=== PATIENT | female | born 1995 | race Caucasian/White ===

== ENCOUNTER → 2016-10-23 | Outpatient (REF) | payer OTHER | LOC: M SFHCWAGY 15:42 | PROVIDERS: ATTEND Nurse Practitioner Family | DX: Z11.3 Encounter for screening for infections with a predominantly sexual mode of transmission (principal) ==

== ENCOUNTER 2016-12-16 00:52 | Inpatient (IN) | payer OTHER ==
[~2016-12-16] VITALS: Ht 165.1 cm; Wt 73.4 kg
[2016-12-16] MEDS ORDERED: ALPR1TAB3 (01:05)
[2016-12-16] MEDS ORDERED: IBUP80TA (01:05)
[2016-12-16] MEDS ORDERED: DEXTROAMP-AMPHETAMIN PO (01:05)
[2016-12-16] MEDS ORDERED: AZIT250T3 PO (01:06)
[2016-12-16] MEDS ORDERED: NS 1,000 ML IV ONE (01:45)
[2016-12-16] MEDS ORDERED: ONDANSETRON 4MG/2ML VIAL (J2405) IV ONE (01:45)
[2016-12-16] MEDS ORDERED: MORPHINE 4 MG/ML 1ML SYRINGE IV PRN ×2 (01:45→06:30)
[2016-12-16 03:08] LABS: BASO # 0.1 K/mm3 (0.0-0.2); BASO % 1.1 % (0.0-1.0); EOS # 0.2 K/mm3 (0.0-0.50); EOS % 4.5 % (0.0-3.0); LARGE UNSTAINED CELL # 0.4 K/mm3 (0.0-0.4); LARGE UNSTAINED CELL % 7.2 % (0.0-4.0); LYMPH # 2.5 K/mm3 (1.5-6.5); LYMPH % 40.9 % (24.0-44.0); MEAN CORPUSCULAR HEMOGLOBIN 28.8 pg (27.0-33.0); MEAN CORPUSCULAR HGB CONC 34.8 g/dl (32.0-36.5); MEAN CORPUSCULAR VOLUME 82.7 fl (80.0-96.0); MONO # 0.3 K/mm3 (0.0-0.8); MONO % 5.2 % (0.0-5.0); NEUTROPHILS # 2.2 K/mm3 (1.8-7.7); NEUTROPHILS % 41.1 % (36.0-66.0); PLATELET COUNT, AUTOMATED 174 k/mm3 (150-450); WHITE BLOOD COUNT 5.3 K/mm3 (4.0-10.0)
[2016-12-16 03:22] LABS: CONTROL LINE HCG INT CTR LINE PRESENT
[2016-12-16 03:25] LABS: ALBUMIN 3.4 GM/DL (3.2-5.2); ALBUMIN/GLOBULIN RATIO 0.89 (1.00-1.93); ALKALINE PHOSPHATASE 111 U/L (45-117); ALT/SGPT 45 U/L (12-78); ANION GAP 11 MEQ/L (8-16); AST/SGOT 54 U/L (15-37); BILIRUBIN,DIRECT < 0.1 MG/DL (0.0-0.2); BILIRUBIN,TOTAL 0.6 MG/DL (0.2-1.0); BLOOD UREA NITROGEN 6 MG/DL (7-18); CALCIUM LEVEL 8.1 MG/DL (8.5-10.1); CARBON DIOXIDE LEVEL 24 MEQ/L (21-32); CHLORIDE LEVEL 105 MEQ/L (98-107); CREATININE FOR GFR 0.47 MG/DL (0.55-1.02); GLUCOSE, FASTING 90 MG/DL (70-105); SODIUM LEVEL 140 MEQ/L (136-145); TOTAL PROTEIN 7.2 GM/DL (6.4-8.2)
[2016-12-16] MEDS ORDERED: ISOVUE-370 76% 100ML VIAL (Q9967) As Ordered ONE (04:12)
[2016-12-16] MEDS ORDERED: MORPHINE 4 MG/ML 1ML SYRINGE IV ONE (04:15)
--- NOTE | 2016-12-16 04:50 | REPUSA ---
CLINICAL HISTORY: Abdominal pain. TECHNIQUE: Multiple axial, sagittal and coronal CT images were obtained through the abdomen and pelvi s after administration of intravenous contrast material. COMMENTS: The liver is mildly enlarged without mass or defect. There is no intra or extrahepatic biliary ductal dilatation. The spleen is moderately enlarged. The gallbladder is diffusely thickened. Small pericho lecystic free fluid. The pancreas is of normal contour and attenuation characteristics. There is no e vidence of adrenal mass. Both kidneys demonstrate prompt and equal nephrograms. The kidneys are normal in size, shape and conf iguration. There is no evidence of renal or ureteral mass. No renal or ureteral calculi are identifie d. There is no hydroureter or hydronephrosis. No evidence for appendicitis. There is thickening of the second portion of the duodenum. No evidence for small or large bowel obstruction. There is no evidence of intrinsic or extrinsic bladder mass. There is small amount of free pelvic fluid. Diffusely thickened bladder. 2.5 cm left ovarian cyst. Images of the lung bases show no evidence of pleural or parenchymal mass. Bilateral basilar atelectat ic pulmonary changes. There are no pleural effusions. The bony structures are free of lytic or blastic lesions. IMPRESSION: Thickened gallbladder with pericholecystic free fluid. Mild duodenitis. Fluid-filled proximal colon. Ileus versus developing enteritis/colitis. Mild hepatomegaly. Moderate splenomegaly. Bilateral basilar atelectatic pulmonary changes. Cystitis. Left ovarian cyst. Thank you for your kind referral of this patient.
[2016-12-16] MEDS ORDERED: ACETAMINOPHEN TAB 650MG DOSE (2X325MG) PO ONE (05:45)
--- NOTE | 2016-12-16 06:20 | REPUSA ---
CLINICAL HISTORY: Abdominal pain. TECHNIQUE: Realtime sonographic images were obtained in multiple projections. COMMENTS: Coarse hepatic echotexture. Diffuse edema of the wall of the gallbladder measuring 9.7 mm in its maximum thickness. Nondilated common bile duct measuring 2.9 mm. The right kidney measures 11.9x6.8x4.8 cm. There is no abdominal ascites. The right kidney measures 11.9x6.8x4.8 cm, free of hydronephrosis. Minimal right pleural effusion is noted. CT scan images performed on the same day were reviewed. There is minimal right pleural effusion. IMPRESSION: Thickened gallbladder. Acute inflammatory pathology is suspected. This needs clinical evaluation. Coarse hepatic echotexture. Please correlate with LFTs. Small amount of pericholecystic fluid. Minimal right pleural effusion. Thank you for your kind referral of this patient.
[2016-12-16] MEDS ORDERED: metroNIDAZOLE 500 MG in APPROPRIATE DILUENT 1 EA IV ONE (06:30)
[2016-12-16] MEDS ORDERED: CIPROFLOXACIN 400 MG in APPROPRIATE DILUENT 1 EA IV ONE (06:30)
[2016-12-16] MEDS ORDERED: ALPR1TAB3 PO (08:16)
[2016-12-16] MEDS ORDERED: ADDE5TAB5 PO (08:16)
[2016-12-16] MEDS ORDERED: IBUP200C PO (08:31)
[2016-12-16] MEDS ORDERED: TYLE325T5 PO (08:31)
[2016-12-16 09:05] VITALS: BP 104/69
[2016-12-16] MEDS: PANTOPRAZOLE 40MG INJ (PROTONIX) (C9113) IV SCH (09:28)
[2016-12-16] MEDS: LR 1,000 ML IV SCH ×2 (09:28→13:25)
[2016-12-16] MEDS: SENOKOT S TAB PO SCH ×2 (09:28→21:19)
[2016-12-16] MEDS: KETOROLAC 30 MG/ML VIAL (J1885) IV PRN ×3 (09:29→22:46)
[2016-12-16] MEDS: ONDANSETRON 4MG/2ML VIAL (J2405) IV PRN ×3 (09:29→22:24)
[2016-12-16] MEDS: ALPRAZolam 0.5 MG TAB PO PRN ×2 (12:39→18:51)
[2016-12-16 14:00] VITALS: BP 117/58
[2016-12-16] MEDS: metroNIDAZOLE 500 MG in APPROPRIATE DILUENT 1 EA IV SCH (16:33)
[2016-12-16] MEDS: NORCO, ANEXSIA 5/325MG TABLET (HYDROcodone/ACETAMINOPHEN) PO PRN (17:41)
[2016-12-16] MEDS: CIPROFLOXACIN 400 MG in APPROPRIATE DILUENT 1 EA IV SCH (18:52)
[2016-12-16 22:00] VITALS: BP 110/55
[2016-12-17] MEDS: metroNIDAZOLE 500 MG in APPROPRIATE DILUENT 1 EA IV SCH ×3 (00:29→16:00)
[2016-12-17] MEDS: LR 1,000 ML IV SCH ×4 (00:29→23:46)
[2016-12-17] MEDS: ACETAMINOPHEN TAB 650MG DOSE (2X325MG) PO PRN (05:32)
[2016-12-17 06:00] VITALS: BP 110/52
[2016-12-17 06:37] LABS: MEAN CORPUSCULAR HEMOGLOBIN 28.6 pg (27.0-33.0); MEAN CORPUSCULAR HGB CONC 34.7 g/dl (32.0-36.5); MEAN CORPUSCULAR VOLUME 82.2 fl (80.0-96.0); RED CELL DISTRIBUTION WIDTH 12.8 % (11.5-14.5); WHITE BLOOD COUNT 4.3 K/mm3 (4.0-10.0)
[2016-12-17 06:50] LABS: ALBUMIN 2.8 GM/DL (3.2-5.2); ALBUMIN/GLOBULIN RATIO 0.93 (1.00-1.93); ALKALINE PHOSPHATASE 90 U/L (45-117); ALT/SGPT 43 U/L (12-78); ANION GAP 10 MEQ/L (8-16); AST/SGOT 44 U/L (15-37); BILIRUBIN,TOTAL 0.6 MG/DL (0.2-1.0); BLOOD UREA NITROGEN 7 MG/DL (7-18); CALCIUM LEVEL 8.1 MG/DL (8.5-10.1); CARBON DIOXIDE LEVEL 23 MEQ/L (21-32); CHLORIDE LEVEL 108 MEQ/L (98-107); CREATININE FOR GFR 0.43 MG/DL (0.55-1.02); GLUCOSE, FASTING 87 MG/DL (70-105); POTASSIUM SERUM 3.5 MEQ/L (3.5-5.1); SODIUM LEVEL 141 MEQ/L (136-145); TOTAL PROTEIN 5.8 GM/DL (6.4-8.2)
[2016-12-17] MEDS: CIPROFLOXACIN 400 MG in APPROPRIATE DILUENT 1 EA IV SCH ×2 (06:54→18:28)
[2016-12-17] MEDS: PANTOPRAZOLE 40MG INJ (PROTONIX) (C9113) IV SCH (09:27)
[2016-12-17] MEDS: ONDANSETRON 4MG/2ML VIAL (J2405) IV PRN ×2 (09:28→18:28)
[2016-12-17] MEDS: ALPRAZolam 0.5 MG TAB PO PRN ×2 (09:28→18:38)
[2016-12-17] MEDS: SENOKOT S TAB PO SCH ×2 (09:28→21:00)
[2016-12-17] MEDS: NORCO, ANEXSIA 5/325MG TABLET (HYDROcodone/ACETAMINOPHEN) PO PRN ×2 (09:29→15:05)
[2016-12-17 14:00] VITALS: BP 135/65
[2016-12-17] MEDS: METOCLOPRAMIDE INJ 10MG/2ML VIAL (J2765) IV PRN ×2 (15:03→21:55)
[2016-12-17] MEDS: KETOROLAC 30 MG/ML VIAL (J1885) IV PRN (21:56)
[2016-12-17 22:00] VITALS: BP 129/70
[2016-12-18] VITALS (7 sets, daily range): BP systolic 115–136; BP diastolic 57–76
[2016-12-18] MEDS: METOCLOPRAMIDE INJ 10MG/2ML VIAL (J2765) IV PRN ×2 (00:30→08:51)
[2016-12-18] MEDS: KETOROLAC 30 MG/ML VIAL (J1885) IV PRN ×2 (00:30→06:24)
[2016-12-18] MEDS: metroNIDAZOLE 500 MG in APPROPRIATE DILUENT 1 EA IV SCH ×4 (00:30→23:46)
[2016-12-18] MEDS: ONDANSETRON 4MG/2ML VIAL (J2405) IV PRN (06:24)
[2016-12-18] MEDS: CIPROFLOXACIN 400 MG in APPROPRIATE DILUENT 1 EA IV SCH ×2 (06:25→19:00)
[2016-12-18] MEDS: LR 1,000 ML IV SCH ×3 (07:46→23:32)
[2016-12-18] MEDS: PANTOPRAZOLE 40MG INJ (PROTONIX) (C9113) IV SCH (08:51)
[2016-12-18] MEDS: SENOKOT S TAB PO SCH ×2 (09:00→20:39)
[2016-12-18] MEDS ORDERED: INFLUENZA QUADRIVALENT PF VACCINE 0.5ML SYRINGE/VIAL (90686) IM ONE (09:00)
[2016-12-18] MEDS ORDERED: MIDAZOLAM INJ 2 MG/2 ML VIAL (J2250) As Ordered ONE (09:56)
[2016-12-18] MEDS ORDERED: PROPOFOL 200 MG/20 ML VIAL As Ordered ONE (09:57)
[2016-12-18] MEDS ORDERED: fentaNYL 250 MCG/5 ML INJECTION (J3010) As Ordered ONE (09:57)
[2016-12-18] MEDS ORDERED: ROCURONIUM BROMIDE 50 MG/5 ML VIAL As Ordered ONE ×2 (09:59→11:36)
[2016-12-18] MEDS ORDERED: BUPIVACAINE HCL 0.25% 30 ML VIAL As Ordered ONE (10:00)
[2016-12-18] MEDS ORDERED: LIDOCAINE 1% SDV INJ 30 ML VIAL As Ordered ONE (10:00)
[2016-12-18] MEDS ORDERED: CONRAY-60 60% 50ML VIAL (Q9961) As Ordered ONE (10:00)
[2016-12-18 10:34] LABS: CONTROL LINE UCG INT CTR LINE PRESENT
[2016-12-18] MEDS ORDERED: METOCLOPRAMIDE INJ 10MG/2ML VIAL (J2765) As Ordered ONE (10:37)
[2016-12-18] MEDS ORDERED: ONDANSETRON 4MG/2ML VIAL (J2405) As Ordered ONE (10:43)
[2016-12-18] MEDS ORDERED: HYDROmorphone HCL 2 MG/ML 1ML VIAL (J1170) As Ordered ONE (11:16)
[2016-12-18] MEDS ORDERED: dexameTHASONE 4 MG/ML 1ML VIAL (J1100) As Ordered ONE (11:19)
[2016-12-18] MEDS ORDERED: SUGAMMADEX SODIUM 500 MG/5 ML VIAL (BRIDION) As Ordered ONE (12:10)
[2016-12-18] MEDS ORDERED: fentaNYL 100 MCG/2 ML INJECTION (J3010) IV PRN (13:00)
[2016-12-18] MEDS ORDERED: ONDANSETRON 4MG/2ML VIAL (J2405) IV PRN (13:00)
[2016-12-18] MEDS ORDERED: LR 1,000 ML IV SCH (13:00)
[2016-12-18] MEDS ORDERED: METOCLOPRAMIDE INJ 10MG/2ML VIAL (J2765) IV PRN (13:00)
[2016-12-18] MEDS ORDERED: MEPERIDINE INJ 25 MG/ML VIAL (J2175) IV PRN (13:00)
[2016-12-18] MEDS ORDERED: PERCOCET 5MG/325MG TAB As Ordered ONE ×2 (13:09→13:52)
[2016-12-18] MEDS: PERCOCET 5MG/325MG TAB PO PRN ×2 (13:13→13:56)
[2016-12-18] MEDS: MORPHINE 4 MG/ML 1ML SYRINGE IV PRN ×2 (17:01→22:45)
[2016-12-18] MEDS: ALPRAZolam 0.5 MG TAB PO PRN (17:49)
[2016-12-18] MEDS: NORCO, ANEXSIA 5/325MG TABLET (HYDROcodone/ACETAMINOPHEN) PO PRN (18:54)
[2016-12-19] MEDS: ALPRAZolam 0.5 MG TAB PO PRN ×2 (00:55→15:37)
[2016-12-19] MEDS: KETOROLAC 30 MG/ML VIAL (J1885) IV PRN (00:55)
[2016-12-19] MEDS: METOCLOPRAMIDE INJ 10MG/2ML VIAL (J2765) IV PRN (00:58)
[2016-12-19 02:00] VITALS: BP 126/66
[2016-12-19] MEDS: NORCO, ANEXSIA 5/325MG TABLET (HYDROcodone/ACETAMINOPHEN) PO PRN ×3 (05:59→20:24)
[2016-12-19] MEDS: CIPROFLOXACIN 400 MG in APPROPRIATE DILUENT 1 EA IV SCH (05:59)
[2016-12-19 06:00] VITALS: BP 108/56
[2016-12-19] MEDS ORDERED: metroNIDAZOLE (FLAGYL) 500 MG TAB PO SCH (06:00)
[2016-12-19] MEDS ORDERED: CIPROFLOXACIN 500 MG TAB PO SCH (06:00)
[2016-12-19 07:26] LABS: BASO # 0.1 K/mm3 (0.0-0.2); BASO % 1.2 % (0.0-1.0); EOS # 0.2 K/mm3 (0.0-0.50); EOS % 3.3 % (0.0-3.0); LARGE UNSTAINED CELL # 0.3 K/mm3 (0.0-0.4); LARGE UNSTAINED CELL % 5.9 % (0.0-4.0); MEAN CORPUSCULAR HEMOGLOBIN 28.7 pg (27.0-33.0); MEAN CORPUSCULAR HGB CONC 35.2 g/dl (32.0-36.5); MEAN CORPUSCULAR VOLUME 81.4 fl (80.0-96.0); MONO # 0.4 K/mm3 (0.0-0.8); MONO % 7.6 % (0.0-5.0); NEUTROPHILS # 2.3 K/mm3 (1.8-7.7); PLATELET COUNT, AUTOMATED 170 k/mm3 (150-450); RED CELL DISTRIBUTION WIDTH 13.2 % (11.5-14.5); WHITE BLOOD COUNT 4.9 K/mm3 (4.0-10.0)
[2016-12-19 07:50] LABS: ALBUMIN 2.7 GM/DL (3.2-5.2); ALBUMIN/GLOBULIN RATIO 0.93 (1.00-1.93); ALKALINE PHOSPHATASE 164 U/L (45-117); ALT/SGPT 138 U/L (12-78); ANION GAP 9 MEQ/L (8-16); AST/SGOT 281 U/L (15-37); BILIRUBIN,TOTAL 0.6 MG/DL (0.2-1.0); BLOOD UREA NITROGEN 6 MG/DL (7-18); CARBON DIOXIDE LEVEL 25 MEQ/L (21-32); CHLORIDE LEVEL 108 MEQ/L (98-107); CREATININE FOR GFR 0.47 MG/DL (0.55-1.02); GLUCOSE, FASTING 106 MG/DL (70-105); POTASSIUM SERUM 3.4 MEQ/L (3.5-5.1); SODIUM LEVEL 142 MEQ/L (136-145); TOTAL PROTEIN 5.6 GM/DL (6.4-8.2)
[2016-12-19] MEDS: SENOKOT S TAB PO SCH ×2 (08:50→20:21)
[2016-12-19] MEDS: PANTOPRAZOLE 40MG INJ (PROTONIX) (C9113) IV SCH (08:50)
--- NOTE | 2016-12-19 09:25 | RO ---
DATE OF PROCEDURE: 12/18/2016 PREOPERATIVE DIAGNOSIS: Acute cholecystitis. POSTOPERATIVE DIAGNOSIS: Acute cholecystitis. PROCEDURE: Laparoscopic cholecystectomy. SURGEON: Dr. Dipak Maher. SALES LEDGER ADMINISTRATOR: ANESTHESIA: General anesthesia. ESTIMATED BLOOD LOSS: Less than 25 mL. COMPLICATIONS: None. FINDINGS: Distended and acutely inflamed gallbladder though no obvious stones found. PROCEDURE NOTE: Ms. Wheat is admitted for acute cholecystitis and has failed medical management with antibiotics and bowel rest. She continues to have discomfort and nausea and vomiting as well as febrile episodes. She is brought today for cholecystectomy. The patient has been receiving ciprofloxacin, metronidazole during this admission. This was this was continued perioperatively. She was brought to the operating room, placed spine on table. General endotracheal anesthesia started. Compression boots placed on her lower extremities for deep venous thrombosis (DVT) prophylaxis. Her abdomen then prepped and draped in usual sterile fashion. After surgical time-out, we began our surgery. Entry to the abdomen done through an incision just above her umbilicus. Veress needle inserted in a controlled fashion. CO2 insufflation started to a pressure of 15 mmHg. Using the same incision, a 5 mm Visiport was placed under direct vision of laparoscope. The insertion site was inspected for injury and none was found. She was placed on a reverse Trendelenburg position. Her right side tilted roughly about 40 degrees to further expose the gallbladder. Under direct vision, an 11 mm epigastric port and two 5 mm ports along the subcostal line on the right side were placed. On diagnostic laparoscopy, the gallbladder was found to be moderately distended, mildly thickened wall but had edema around her gallbladder wall consistent with acute cholecystitis. Palpating the gallbladder did not reveal any obvious stones. The fundus of the gallbladder was grasped and elevated superiorly. Due to location of the gallbladder being further into the underside of the liver and the distension of the gallbladder, the gallbladder could not be lifted up as much as we want to fully expose the infundibulum. The peritoneum on the anterior and posterior side of the gallbladder was then opened up to help us manipulate the gallbladder. The hepatocystic triangle was dissected using [place] instrument. The cystic duct is fairly distended but still no stones were found. The cystic artery was located medial to this which is small in size. During our manipulation with a lateral retraction of the neck of the gallbladder, there was puncture of the gallbladder wall at this area with drainage of black bilious content. After controlling this, we continued dissection posteriorly at the neck of the gallbladder until we meet the critical view of safety whereby the duct and artery were the only two structures coursing through the neck of the gallbladder. To also help us elevate the gallbladder more, we did the fundus dissection dissecting the posterior wall of the fundus off the gallbladder bed up to the midbody. After this, the cystic artery was clipped four times and divided. Due to the fairly large size of the cystic duct, the 10 mm clip is not enough to fully occlude the stump, thus I continued the antegrade dissection of the gallbladder to fully dissect the gallbladder off the liver bed. I then used a #0 Vicryl Endoloop and threaded this through the whole of the gallbladder until we reached the area beyond where the perforation of the gallbladder neck was found and used this to control the cystic duct. This is cinched just at the start of the cystic duct. Another hemoclip was placed to secure the stump. The duct was then divided. This was then placed in EndoCatch bag and retrieved through the epigastric port site. On re-insufflation, there was a small bleeding on the lateral side of the gallbladder bed midway and this was controlled with Bovie cautery. Thorough irrigation was then performed and all visible irrigant suctioned off until we have a clear return. We surveyed the abdomen once and looked at the stump. No bleeding or bile leakage was noted. We again tried to suction of any remaining irrigant that we placed. The abdomen was then deflated. All ports removed. The epigastric fascial defect with an 11 mm trocar was then closed with #0 Vicryl in mattress fashion. All skin incisions closed with #4-0 Monocryl in subcuticular fashion. Gauze dressings and Tegaderm used for wound coverage. The patient was then awakened, extubated and brought to recovery room stable.
[2016-12-19 10:00] VITALS: BP 129/75
[2016-12-19] MEDS: ONDANSETRON 4 MG ORAL DISINTEGRATING TAB (S0181) SL SCH ×3 (12:38→23:43)
[2016-12-19 14:00] VITALS: BP 113/67
[2016-12-19 22:00] VITALS: BP 133/83
[2016-12-20] MEDS: ALPRAZolam 0.5 MG TAB PO PRN ×2 (02:06→21:11)
[2016-12-20] MEDS: NORCO, ANEXSIA 5/325MG TABLET (HYDROcodone/ACETAMINOPHEN) PO PRN ×3 (03:08→18:00)
[2016-12-20] MEDS: ONDANSETRON 4 MG ORAL DISINTEGRATING TAB (S0181) SL SCH (05:32)
[2016-12-20 06:00] VITALS: BP 118/64
[2016-12-20 09:13] LABS: ALBUMIN 2.6 GM/DL (3.2-5.2); ALBUMIN/GLOBULIN RATIO 0.87 (1.00-1.93); ALKALINE PHOSPHATASE 166 U/L (45-117); ALT/SGPT 216 U/L (12-78); ANION GAP 7 MEQ/L (8-16); AST/SGOT 335 U/L (15-37); BILIRUBIN,TOTAL 0.5 MG/DL (0.2-1.0); BLOOD UREA NITROGEN 6 MG/DL (7-18); CALCIUM LEVEL 7.8 MG/DL (8.5-10.1); CARBON DIOXIDE LEVEL 26 MEQ/L (21-32); CHLORIDE LEVEL 107 MEQ/L (98-107); CREATININE FOR GFR 0.39 MG/DL (0.55-1.02); GLUCOSE, FASTING 94 MG/DL (70-105); POTASSIUM SERUM 3.1 MEQ/L (3.5-5.1); SODIUM LEVEL 140 MEQ/L (136-145); TOTAL PROTEIN 5.6 GM/DL (6.4-8.2)
[2016-12-20] MEDS: SENOKOT S TAB PO SCH ×2 (10:08→21:11)
[2016-12-20] MEDS ORDERED: ONDANSETRON 4MG/2ML VIAL (J2405) IV SCH (12:00)
[2016-12-20 14:00] VITALS: BP 134/72
--- NOTE | 2016-12-20 14:32 | REP ---
Radionuclide biliary scan: Imaging is performed after intravenous infusion of these a 99 labeled that profound then, 6.6 mCi. Comparison is a gallbladder ultrasound of 12/16/2016 that demonstrated gallbladder wall thickening. Portion the patient reportedly had a cholecystectomy 2 days ago and has post op nausea, vomiting and abdominal pain. There is biliary to bowel transit at 10-50 minutes post fusion. There is normal hepatic washout. There is no extravasation of radiotracer. Impression: No evidence of biliary obstruction. No extraluminal extravasation of radiotracer. Signed by Shailesh Sargent MD 12/20/2016 02:24 P
[2016-12-20] MEDS ORDERED: METOCLOPRAMIDE INJ 10MG/2ML VIAL (J2765) IV SCH (15:00)
[2016-12-20] MEDS ORDERED: ONDANSETRON 4 MG ORAL DISINTEGRATING TAB (S0181) PO PRN (15:15)
[2016-12-20] MEDS: ONDANSETRON 4 MG ORAL DISINTEGRATING TAB (S0181) PO SCH ×2 (15:36→21:11)
[2016-12-20] MEDS ORDERED: ONDANSETRON 4 MG ORAL DISINTEGRATING TAB (S0181) PO SCH (18:00)
[2016-12-20] MEDS: METOCLOPRAMIDE 10 MG TAB PO SCH (21:00)
[2016-12-20 22:00] VITALS: BP 122/70
[2016-12-20] MEDS: ACETAMINOPHEN TAB 650MG DOSE (2X325MG) PO PRN (22:51)
[2016-12-21] MEDS: NORCO, ANEXSIA 5/325MG TABLET (HYDROcodone/ACETAMINOPHEN) PO PRN ×2 (03:05→10:43)
[2016-12-21] MEDS: ONDANSETRON 4 MG ORAL DISINTEGRATING TAB (S0181) PO SCH ×2 (03:05→09:14)
[2016-12-21 06:00] VITALS: BP 118/56
[2016-12-21 06:58] LABS: BASO # 0.1 K/mm3 (0.0-0.2); BASO % 1.3 % (0.0-1.0); EOS # 0.2 K/mm3 (0.0-0.50); EOS % 3.8 % (0.0-3.0); LARGE UNSTAINED CELL # 0.4 K/mm3 (0.0-0.4); LARGE UNSTAINED CELL % 7.4 % (0.0-4.0); LYMPH # 2.3 K/mm3 (1.5-6.5); LYMPH % 40.7 % (24.0-44.0); MEAN CORPUSCULAR HEMOGLOBIN 27.8 pg (27.0-33.0); MEAN CORPUSCULAR HGB CONC 34.5 g/dl (32.0-36.5); MEAN CORPUSCULAR VOLUME 80.7 fl (80.0-96.0); MONO # 0.3 K/mm3 (0.0-0.8); MONO % 6.5 % (0.0-5.0); NEUTROPHILS % 40.3 % (36.0-66.0); PLATELET COUNT, AUTOMATED 200 k/mm3 (150-450); RED CELL DISTRIBUTION WIDTH 13.6 % (11.5-14.5); WHITE BLOOD COUNT 4.8 K/mm3 (4.0-10.0)
[2016-12-21 07:16] LABS: ALBUMIN 2.6 GM/DL (3.2-5.2); ALBUMIN/GLOBULIN RATIO 0.79 (1.00-1.93); ALKALINE PHOSPHATASE 171 U/L (45-117); ALT/SGPT 210 U/L (12-78); ANION GAP 6 MEQ/L (8-16); AST/SGOT 252 U/L (15-37); BILIRUBIN,TOTAL 0.5 MG/DL (0.2-1.0); BLOOD UREA NITROGEN 5 MG/DL (7-18); CALCIUM LEVEL 7.8 MG/DL (8.5-10.1); CARBON DIOXIDE LEVEL 27 MEQ/L (21-32); CHLORIDE LEVEL 106 MEQ/L (98-107); CREATININE FOR GFR 0.39 MG/DL (0.55-1.02); GLUCOSE, FASTING 103 MG/DL (70-105); POTASSIUM SERUM 3.1 MEQ/L (3.5-5.1); SODIUM LEVEL 139 MEQ/L (136-145); TOTAL PROTEIN 5.9 GM/DL (6.4-8.2)
[2016-12-21] MEDS: METOCLOPRAMIDE 10 MG TAB PO SCH (08:41)
[2016-12-21] MEDS ORDERED: POTASSIUM CHLORIDE 10 MEQ SR TABLET PO SCH (09:00)
[2016-12-21] MEDS: SENOKOT S TAB PO SCH (09:14)
[2016-12-21] MEDS ORDERED: ONDA4TAB6 PO (12:41)
[2016-12-21] MEDS ORDERED: NORCOTAB PO (12:41)
[2016-12-21] MEDS ORDERED: cmp (12:43)
== END 2016-12-21 14:50 | disposition home or self-care (01) | DRG 263 ==
LOC: M ED 01:35 → M ED INP 07:46 → M MS5PR 08:35
PROVIDERS: ADMIT Surgery; ATTEND Surgery
PROC: 0FT44ZZ Resection of Gallbladder, Percutaneous Endoscopic Approach (ICD-10-PCS; principal; 2016-12-18 09:09)
DX: K81.0 Acute cholecystitis (principal)

== ENCOUNTER → 2016-12-26 | Outpatient (CLI) | payer OTHER ==
[~2016-12-26] MED LIST: ADDE5TAB5 PO; ALPR1TAB3; ALPR1TAB3 PO; AZIT250T3 PO; DEXTROAMP-AMPHETAMIN PO; IBUP200C PO; IBUP80TA; NORCOTAB PO; ONDA4TAB6 PO; OXYC1TAB23 PO; TYLE325T5 PO; cmp
[2016-12-26 13:55] LABS: ALBUMIN 2.8 GM/DL (3.2-5.2); ALBUMIN/GLOBULIN RATIO 0.74 (1.00-1.93); ALKALINE PHOSPHATASE 128 U/L (45-117); ALT/SGPT 87 U/L (12-78); ANION GAP 6 MEQ/L (8-16); AST/SGOT 73 U/L (15-37); BILIRUBIN,TOTAL 0.5 MG/DL (0.2-1.0); BLOOD UREA NITROGEN 6 MG/DL (7-18); CALCIUM LEVEL 8.5 MG/DL (8.5-10.1); CARBON DIOXIDE LEVEL 29 MEQ/L (21-32); CHLORIDE LEVEL 103 MEQ/L (98-107); CREATININE FOR GFR 0.49 MG/DL (0.55-1.02); GLUCOSE, FASTING 97 MG/DL (70-105); POTASSIUM SERUM 4.5 MEQ/L (3.5-5.1); SODIUM LEVEL 138 MEQ/L (136-145); TOTAL PROTEIN 6.6 GM/DL (6.4-8.2)
== END ==
LOC: M LAB 12:58
PROVIDERS: ATTEND Surgery
DX: K80.12 Calculus of gallbladder with acute and chronic cholecystitis without obstruction (principal)

== ENCOUNTER 2016-12-30 03:58 | Emergency (ER) | payer OTHER ==
[~2016-12-30] VITALS: Ht 165.1 cm; Wt 76.2 kg
[~2016-12-30 03:58] MED LIST changes: -OXYC1TAB23 PO
[2016-12-30] MEDS ORDERED: OXYC1TAB23 PO (04:28)
[2016-12-30 06:09] VITALS: BP 129/72
== END 2016-12-30 06:42 | disposition left against medical advice (07) ==
LOC: M ED 04:58
DX: R07.0 Pain in throat (principal); Z53.21 Procedure and treatment not carried out due to patient leaving prior to being seen by health care provider

== ENCOUNTER → 2017-02-01 | Outpatient (REF) | payer OTHER ==
[~2017-02-01] MED LIST changes: +OXYC1TAB23 PO
== END ==
LOC: M SFHCWAGY 14:45
PROVIDERS: ATTEND Nurse Practitioner Women's Health
DX: Z11.3 Encounter for screening for infections with a predominantly sexual mode of transmission (principal); R10.2 Pelvic and perineal pain; Z86.19 Personal history of other infectious and parasitic diseases

== ENCOUNTER 2017-05-23 15:14 | Emergency (ER) | payer OTHER, SELFPAY ==
[~2017-05-23] VITALS: Ht 165.1 cm; Wt 73.0 kg
[~2017-05-23 15:14] MED LIST changes: +ADDE1TAB14 PO; -ADDE5TAB5 PO; +AZIT-12 PO; -AZIT250T3 PO; -IBUP200C PO; +IBUP200C10 PO
[2017-05-23] MEDS ORDERED: DAYLIQ3 PO (15:28)
[2017-05-23 17:16] VITALS: BP 113/77
--- NOTE | 2017-05-23 21:41 | ECGEPIP ---
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
== END 2017-05-23 17:17 | disposition home or self-care (01) ==
LOC: M ED 15:14
DX: F41.9 Anxiety disorder, unspecified (principal); M94.0 Chondrocostal junction syndrome [Tietze]; D64.9 Anemia, unspecified; F32.9 Major depressive disorder, single episode, unspecified; F90.0 Attention-deficit hyperactivity disorder, predominantly inattentive type; Z87.09 Personal history of other diseases of the respiratory system; Z88.0 Allergy status to penicillin; Z88.8 Allergy status to other drugs, medicaments and biological substances

== ENCOUNTER 2017-07-01 21:08 | Emergency (ER) | payer SELFPAY ==
[~2017-07-01] VITALS: Ht 165.1 cm; Wt 73.6 kg
[~2017-07-01 21:08] MED LIST changes: +DAYLIQ3 PO
[2017-07-01] MEDS ORDERED: iron PO (21:21)
[2017-07-01] MEDS ORDERED: ranitidine PO (21:21)
[2017-07-01] MEDS ORDERED: prenatal PO (21:21)
[2017-07-01] MEDS ORDERED: KETOROLAC 30 MG/ML VIAL (J1885) IV ONE (22:30)
[2017-07-01 23:15] LABS: BASO % 0.5 % (0.0-1.0); EOS % 0.2 % (0.0-3.0); IMMATURE GRANULOCYTE % 0.3 % (0-0); LYMPH # 1.6 10^3/uL (1.5-6.5); LYMPH % 24.6 % (24.0-44.0); MEAN CORPUSCULAR HEMOGLOBIN 30.1 pg (27.0-33.0); MEAN CORPUSCULAR HGB CONC 35.5 g/dl (32.0-36.5); MEAN CORPUSCULAR VOLUME 84.8 fl (80.0-96.0); MONO # 0.6 10^3/uL (0.0-0.8); MONO % 8.9 % (0.0-5.0); NEUTROPHILS # 4.2 10^3/uL (1.8-7.7); NEUTROPHILS % 65.5 % (36.0-66.0); PLATELET COUNT, AUTOMATED 335 10^3/uL (150-450); RED CELL DISTRIBUTION WIDTH 12.5 % (11.5-14.5); WHITE BLOOD COUNT 6.4 10^3/uL (4.0-10.0)
[2017-07-01 23:42] LABS: ABG BASE EXCESS -2.3 (-2.0-2.0); ABG PARTIAL PRESSURE CO2 27.1 mmHg (35.0-45.0); ABG PARTIAL PRESSURE O2 149.2 mmHg (75.0-100.0); ABG STANDARD HCO3 22.6 MEQ/L (22.0-26.0); ABG TOTAL CO2 20.9 MEQ/L (22.0-29.0); ABG pH (ARTERIAL) 7.487 UNITS (7.350-7.450)
[2017-07-01 23:45] LABS: ANION GAP 5 MEQ/L (8-16); BLOOD UREA NITROGEN 2 MG/DL (7-18); CALCIUM LEVEL 9.3 MG/DL (8.5-10.1); CARBON DIOXIDE LEVEL 28 MEQ/L (21-32); CHLORIDE LEVEL 108 MEQ/L (98-107); CREATININE FOR GFR 0.41 MG/DL (0.55-1.02); GLOMERULAR FILTRATION RATE > 60.0 (>60); GLUCOSE, FASTING 98 MG/DL (70-105); POTASSIUM SERUM 3.5 MEQ/L (3.5-5.1); SODIUM LEVEL 141 MEQ/L (136-145); T UPTAKE 31 % (30-39); THYROXINE (T4) 11.5 UG/DL (4.5-12.0)
[2017-07-02 00:14] VITALS: BP 119/72
--- NOTE | 2017-07-02 02:13 | REP ---
Clinical: Chest pain . Comparison: 09/05/2015 . Technique: PA and lateral. Findings: The mediastinum and cardiac silhouette are normal. The lung dawson are clear and without acute consolidation, effusion, or pneumothorax. The skeletal structures are intact and normal. Impression: 1. No acute cardiopulmonary process. Signed by Ronny Deng MD 07/02/2017 02:04 A
--- NOTE | 2017-07-02 09:38 | ECGEPIP ---
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
== END 2017-07-02 00:16 | disposition home or self-care (01) ==
LOC: M ED 21:08
DX: R07.1 Chest pain on breathing (principal); R06.4 Hyperventilation; F41.9 Anxiety disorder, unspecified; D50.9 Iron deficiency anemia, unspecified; Z79.899 Other long term (current) drug therapy; Z88.0 Allergy status to penicillin; Z88.8 Allergy status to other drugs, medicaments and biological substances; Z88.1 Allergy status to other antibiotic agents
CPT/HCPCS: 71020; 80048; 82803; 84436; 84443; 84479; 85025; 93005; 96374; 99283; J1885

== ENCOUNTER → 2017-10-03 | Outpatient (REF) | payer MEDICAID, OTHER | LOC: M LAB REF 14:09 | DX: R05 Cough (principal); R50.9 Fever, unspecified ==

== ENCOUNTER → 2017-10-26 | Outpatient (CLI) | payer OTHER ==
[2017-10-26 15:21] LABS: BASO % 0.4 % (0.0-1.0); EOS # 0.1 10^3/uL (0.0-0.50); EOS % 1.4 % (0.0-3.0); HEMATOCRIT 34.5 % (36.0-47.0); IMMATURE GRANULOCYTE % 0.1 % (0-3.0); LYMPH # 2.1 10^3/uL (1.5-6.5); LYMPH % 28.5 % (24.0-44.0); MEAN CORPUSCULAR HEMOGLOBIN 29.1 pg (27.0-33.0); MEAN CORPUSCULAR HGB CONC 34.8 g/dl (32.0-36.5); MEAN CORPUSCULAR VOLUME 83.7 fl (80.0-96.0); MONO # 0.8 10^3/uL (0.0-0.8); MONO % 10.9 % (0.0-5.0); NEUTROPHILS # 4.3 10^3/uL (1.8-7.7); NEUTROPHILS % 58.7 % (36.0-66.0); PLATELET COUNT, AUTOMATED 308 10^3/uL (150-450); RED BLOOD COUNT 4.12 10^6/uL (4.00-5.40); RED CELL DISTRIBUTION WIDTH 12.3 % (11.5-14.5); WHITE BLOOD COUNT 7.4 10^3/uL (4.0-10.0)
[2017-10-26 16:42] LABS: CHLAMYDIA DNA AMPLIFICATION NEGATIVE (NEGATIVE); GC DNA AMPLIFICATION NEGATIVE (NEGATIVE)
[2017-10-29 10:34] LABS: RUBELLA IgG QUALITATIVE IMMUNE (IMMUNE)
[2017-10-29 10:40] LABS: HBsAg Prenatal NEGATIVE (NEGATIVE)
[2017-10-29 11:04] LABS: HIV 1&2 SCREEN CENTAUR NEGATIVE (NEGATIVE)
== END ==
LOC: M LAB 14:28
DX: Z34.81 Encounter for supervision of other normal pregnancy, first trimester (principal); Z3A.08 8 weeks gestation of pregnancy
CPT/HCPCS: 86762

== ENCOUNTER → 2017-11-23 | Outpatient (REF) | payer OTHER | LOC: M LAB REF 12:54 | DX: Z34.82 Encounter for supervision of other normal pregnancy, second trimester (principal) ==

== ENCOUNTER → 2017-12-20 | Outpatient (REF) | payer OTHER | LOC: M LAB REF 17:02 | DX: Z34.82 Encounter for supervision of other normal pregnancy, second trimester (principal) ==

== ENCOUNTER → 2018-01-07 | Outpatient (CLI) | payer OTHER | LOC: M RAD 14:31 | DX: Z34.82 Encounter for supervision of other normal pregnancy, second trimester (principal); Z3A.19 19 weeks gestation of pregnancy | CPT/HCPCS: 76811 ==

== ENCOUNTER 2018-03-13 15:33 | Emergency (ER) | payer OTHER | END 2018-03-13 17:22 | disposition home or self-care (01) | LOC: M ED 15:33 | DX: O9A.213 Injury, poisoning and certain other consequences of external causes complicating pregnancy, third trimester (principal); S39.012A Strain of muscle, fascia and tendon of lower back, initial encounter; X50.9XXA Other and unspecified overexertion or strenuous movements or postures, initial encounter; Y92.89 Other specified places as the place of occurrence of the external cause; Z3A.28 28 weeks gestation of pregnancy; Z88.8 Allergy status to other drugs, medicaments and biological substances; Z88.0 Allergy status to penicillin; Z79.2 Long term (current) use of antibiotics | CPT/HCPCS: 99283 ==

== ENCOUNTER → 2018-04-08 | Outpatient (CLI) | payer OTHER | LOC: M RAD 17:32 | DX: Z34.83 Encounter for supervision of other normal pregnancy, third trimester (principal); Z36.89 Encounter for other specified antenatal screening; Z3A.32 32 weeks gestation of pregnancy | CPT/HCPCS: 76816 ==

== ENCOUNTER → 2018-05-02 | Outpatient (REF) | payer OTHER | LOC: M LAB REF 17:14 | DX: Z36.89 Encounter for other specified antenatal screening (principal); Z3A.00 Weeks of gestation of pregnancy not specified | CPT/HCPCS: 87081 ==

== ENCOUNTER 2018-05-06 09:22 | Outpatient (CLI) | payer OTHER | END 2018-05-06 11:40 | disposition home or self-care (01) | LOC: M LDO 09:22 | DX: O36.8130 Decreased fetal movements, third trimester, not applicable or unspecified (principal); Z3A.36 36 weeks gestation of pregnancy; O26.893 Other specified pregnancy related conditions, third trimester ==

== ENCOUNTER → 2018-05-08 | Outpatient (CLI) | payer OTHER | LOC: M RAD 16:31 | DX: O26.843 Uterine size-date discrepancy, third trimester (principal); Z3A.36 36 weeks gestation of pregnancy | CPT/HCPCS: 76816 ==

== ENCOUNTER → 2018-05-16 | Outpatient (REF) | payer OTHER | LOC: M LAB REF 17:18 | DX: Z34.83 Encounter for supervision of other normal pregnancy, third trimester (principal); Z36.89 Encounter for other specified antenatal screening | CPT/HCPCS: 82570 ==

== ENCOUNTER 2018-06-08 07:35 | Inpatient (IN) | payer OTHER ==
[2018-06-08 08:37] LABS: HEMOGLOBIN 10.1 g/dl (12.0-15.5); MEAN CORPUSCULAR HEMOGLOBIN 27.2 pg (27.0-33.0); MEAN CORPUSCULAR HGB CONC 33.7 g/dl (32.0-36.5); MEAN CORPUSCULAR VOLUME 80.9 fl (80.0-96.0); PLATELET COUNT, AUTOMATED 239 10^3/uL (150-450); RED BLOOD COUNT 3.71 10^6/uL (4.00-5.40)
[2018-06-08] MEDS: miSOPROStol 50 MCG 1/2 TAB (S0191) SL ×2 (08:59→14:43)
[2018-06-08] MEDS: ACETAMINOPHEN 500 MG TAB PO (19:51)
[2018-06-08] MEDS: LACTATED RINGER'S 1000 ML IV (20:07)
[2018-06-08] MEDS: OXYTOCIN DRIP 30 UNITS in APPROPRIATE DILUENT 1 EA IV (20:44)
[2018-06-08] MEDS ORDERED: PROMETHAZINE INJ 25 MG/ML VIAL (J2550) IV (21:00)
[2018-06-08] MEDS: BUTORPHANOL 2 MG/ML INJ (J0595) IV (22:09)
[2018-06-09] MEDS ORDERED: FENTANYL 2MCG/ML ROPIVACAINE 0.2% IN 0.9% NACL 200ML IVBAG As Ordered (00:03)
[2018-06-09] MEDS ORDERED: LACTATED RINGER'S 1000 ML IV (00:30)
[2018-06-09] MEDS ORDERED: NALOXONE INJ 0.4 MG/1 ML VIAL (J2310) IV (00:30)
[2018-06-09] MEDS ORDERED: EPIDURAL/PCA KEYS XX (00:30)
[2018-06-09] MEDS ORDERED: ePHEDrine SULFATE 25 MG/5 ML(5MG/ML) SYRINGE IV (00:30)
[2018-06-09] MEDS ORDERED: diphenhydrAMINE INJ 50MG/ML VIAL (J1200) IV (00:30)
[2018-06-09] MEDS ORDERED: EPIDURAL COMMENT XX (00:30)
[2018-06-09] MEDS ORDERED: FENTANYL/ROPIVACAINE/NACL BAG 200 ML EPIDURAL (00:30)
[2018-06-09] MEDS ORDERED: REFRIGERATOR IV KEYS XX (00:30)
[2018-06-09] MEDS: LR 1,000 ML IV ×2 (04:21→04:23)
[2018-06-09] MEDS: ONDANSETRON 4MG/2ML VIAL (J2405) IV (04:21)
[2018-06-09] MEDS ORDERED: LR 1,000 ML IV (13:17)
[2018-06-09] MEDS ORDERED: RHOGAM 300 MCG (1500 IU) INJ (J2790) IM (13:30)
[2018-06-09] MEDS ORDERED: DIBUCAINE 1% OINTMENT 30GM TOP (13:30)
[2018-06-09] MEDS ORDERED: PROMETHAZINE 25 MG TAB PO (13:30)
[2018-06-09] MEDS ORDERED: ONDANSETRON 4MG/2ML VIAL (J2405) IV (13:30)
[2018-06-09] MEDS: ACETAMINOPHEN 500 MG TAB PO (14:55)
[2018-06-09] MEDS: OXYTOCIN DRIP 30 UNITS in APPROPRIATE DILUENT 1 EA IV (19:15)
[2018-06-09] MEDS: IBUPROFEN 800 MG TAB PO (19:35)
[2018-06-09] MEDS: DOCUSATE SODIUM 100 MG CAP PO (21:03)
[2018-06-10] MEDS: ACETAMINOPHEN 500 MG TAB PO (05:17)
[2018-06-10] MEDS: PRENATAL VITAMINS CHEWABLE TABLET PO (08:08)
[2018-06-10] MEDS: IBUPROFEN 800 MG TAB PO (19:50)
[2018-06-11] MEDS: diphenhydrAMINE 50 MG CAP PO (00:11)
== END 2018-06-11 10:15 | disposition home or self-care (01) | DRG 560 ==
LOC: M LDI 07:35 → M OBS 06-09 15:32
PROVIDERS: Obstetrics & Gynecology
PROC: 3E0DXGC Introduction of Other Therapeutic Substance into Mouth and Pharynx, External Approach (ICD-10-PCS; 2018-06-08)
PROC: 10E0XZZ Delivery of Products of Conception, External Approach (ICD-10-PCS; principal; 2018-06-09)
PROC: 0HQ9XZZ Repair Perineum Skin, External Approach (ICD-10-PCS; 2018-06-09)
DX: O48.0 Post-term pregnancy (principal); O70.0 First degree perineal laceration during delivery; Z37.0 Single live birth; Z3A.41 41 weeks gestation of pregnancy

== ENCOUNTER → 2018-12-07 | Outpatient (REF) | payer OTHER ==
[~2018-12-07] MED LIST changes: +BENA25CA4 PO; +CLINDAMYCIN; +IBUP-1114 PO; -IBUP200C10 PO; +IBUP200C25 PO; +MAPA500T2 PO; +OMEP40CA2 PO; +ONDA4TAB5; +PRENTAB9 PO; +iron PO; +prenatal PO; +ranitidine PO
[2018-12-07 20:23] LABS: INFLUENZA A AMPLIFICATION NEGATIVE (NEGATIVE); INFLUENZA B AMPLIFICATION NEGATIVE (NEGATIVE)
== END ==
LOC: M LAB REF 09:25
PROVIDERS: ATTEND Nurse Practitioner Family
DX: J11.1 Influenza due to unidentified influenza virus with other respiratory manifestations (principal)

== ENCOUNTER 2019-08-18 19:03 | Emergency (ER) | payer MEDICAID, OTHER, SELFPAY ==
[~2019-08-18] VITALS: Ht 167.6 cm; Wt 75.9 kg
[~2019-08-18 19:03] MED LIST changes: +HYDR-3715 PO; -NORCOTAB PO; -OMEP40CA2 PO; +OMEP40CA97 PO
[2019-08-18] MEDS ORDERED: CLIN150C14 PO (21:45)
[2019-08-18 21:51] VITALS: BP 119/68
== END 2019-08-18 21:56 | disposition home or self-care (01) ==
LOC: M ED 19:03
DX: J03.81 Acute recurrent tonsillitis due to other specified organisms (principal); Z79.899 Other long term (current) drug therapy

== ENCOUNTER → 2019-09-25 | Outpatient (CLI) | payer OTHER ==
[~2019-09-25] MED LIST changes: +CLIN150C14 PO; +ONDA-83; -ONDA4TAB5
== END ==
LOC: M PLALAB 15:10
PROVIDERS: ATTEND Advanced Practice Midwife
DX: O36.80X0 Pregnancy with inconclusive fetal viability, not applicable or unspecified (principal)

== ENCOUNTER 2019-11-10 08:26 | Emergency (ER) | payer OTHER ==
[~2019-11-10] VITALS: Ht 165.1 cm; Wt 76.4 kg
[2019-11-10] MEDS ORDERED: NS 1,000 ML IV ONE (10:45)
[2019-11-10] MEDS ORDERED: ONDANSETRON 4MG/2ML VIAL (J2405) IV ONE (10:45)
--- NOTE | 2019-11-10 11:21 | REP ---
First trimester ultrasound, stat request for vomiting, lower abdominal pain, and fluid level and the placenta: Comparison is 10/01/2019. The the study is performed with transabdominal imaging. There is a single intrauterine gestation in a breech presentation. The heart rate is 150 beats per minute. The cervix measures 4.2 cm length. The placenta is anterior. There is no placenta previa. There is a placental synechiae along the medial margin of the placenta. There are no trapped parts. The amniotic fluid volume subjectively is normal. The amniotic fluid index is 9.5 (8.3 - 19.5). Gestational age by the first ultrasound is 17 weeks 1 day/FAY 04/18/2020. Ultrasound by LMP is 17 weeks 1 day/FAY 05/06/2020. Electronically Signed by Shailesh Sargent MD 11/10/2019 11:12 A
[2019-11-10 11:26] LABS: HEMATOCRIT 32.5 % (36.0-47.0); HEMOGLOBIN 11.4 g/dl (12.0-15.5); MEAN CORPUSCULAR HEMOGLOBIN 29.5 pg (27.0-33.0); MEAN CORPUSCULAR HGB CONC 35.1 g/dl (32.0-36.5); PLATELET COUNT, AUTOMATED 192 10^3/uL (150-450); RED BLOOD COUNT 3.87 10^6/uL (4.00-5.40); WHITE BLOOD COUNT 4.7 10^3/uL (4.0-10.0)
[2019-11-10 11:56] LABS: ALBUMIN 3.5 GM/DL (3.2-5.2); ALT/SGPT 10 U/L (12-78); BILIRUBIN,TOTAL 0.5 MG/DL (0.2-1.0); BLOOD UREA NITROGEN 4 MG/DL (7-18); CALCIUM LEVEL 8.8 MG/DL (8.5-10.1); CARBON DIOXIDE LEVEL 25 MEQ/L (21-32); CHLORIDE LEVEL 108 MEQ/L (98-107); CREATININE FOR GFR 0.34 MG/DL (0.55-1.30); GLOMERULAR FILTRATION RATE > 60.0 (>60); GLUCOSE, FASTING 85 MG/DL (70-100); MAGNESIUM LEVEL 1.9 MG/DL (1.8-2.4); POTASSIUM SERUM 3.7 MEQ/L (3.5-5.1); SODIUM LEVEL 138 MEQ/L (136-145); TOTAL PROTEIN 6.9 GM/DL (6.4-8.2)
[2019-11-10] MEDS ORDERED: ONDA4TAB6 PO (13:40)
[2019-11-10 13:48] VITALS: BP 112/57
== END 2019-11-10 13:54 | disposition home or self-care (01) ==
LOC: M ED 08:26
DX: O21.0 Mild hyperemesis gravidarum (principal); Z3A.17 17 weeks gestation of pregnancy; Z88.0 Allergy status to penicillin; Z88.1 Allergy status to other antibiotic agents
CPT/HCPCS: 76815; 80053; 83735; 85027; 96361; 96374; 99284; J2405

== ENCOUNTER → 2019-11-28 | Outpatient (CLI) | payer OTHER ==
--- NOTE | 2019-11-28 19:51 | REP ---
HISTORY: anatomy. COMPARISON: None. Multiple ultrasonographic images of the gravid uterus show a single living intrauterine gestation in the tyshawn breech presentation. Doppler interrogation of the heart shows a heart rate of 152 beats per minute. The placenta is anterior and not low lying. The subjective amniotic fluid volume is within normal limits. The cervix measures 3.7 cm in length and is closed. Evaluation of the maternal adnexal spaces showed no abnormalities. BPD 4.5 cm = 19 weeks 4 days HC 16.6 cm = 19 weeks 2 days AC 15.2 cm = 20 weeks 3 days FL 3.1 cm = 19 weeks 4 days The estimated weight is 328 grams, which is at the 54th percentile for a 19 week 5 day gestational age. The structures visualized as unremarkable are as follows: Thalami, cavum septum pellucidum, cerebellum, cisterna magna, kidneys, cord insertion, three vessel umbilical cord, right and left ventricular outflow tracts, stomach, urinary bladder and upper and lower extremities. Structures inadequately visualized are as follows: Four chamber heart and spine. IMPRESSION: Single living intrauterine gestation as described above with an estimated gestational age of 19 weeks 5 days via composite criteria and an estimated date of delivery of 04/18/2020 by today's exam. No anomalies were detected, however, I recommend a followup examination to better visualize those structures not well seen today. Electronically Signed by Reynaldo Han DO 11/28/2019 07:53 P
== END ==
LOC: M RAD 16:42
PROVIDERS: ATTEND Advanced Practice Midwife
DX: Z34.92 Encounter for supervision of normal pregnancy, unspecified, second trimester (principal); Z3A.19 19 weeks gestation of pregnancy

== ENCOUNTER → 2019-12-19 | Outpatient (CLI) | payer OTHER | LOC: M LABSMTC 11:56 | PROVIDERS: ATTEND Family Medicine | DX: Z11.59 Encounter for screening for other viral diseases (principal); Z20.828 Contact with and (suspected) exposure to other viral communicable diseases ==

== ENCOUNTER → 2020-01-01 | Outpatient (REF) | payer OTHER ==
[2020-01-01 12:41] LABS: HEMATOCRIT 32.5 % (36.0-47.0); MEAN CORPUSCULAR HEMOGLOBIN 29.6 pg (27.0-33.0); MEAN CORPUSCULAR HGB CONC 33.8 g/dl (32.0-36.5); MEAN CORPUSCULAR VOLUME 87.6 fl (80.0-96.0); PLATELET COUNT, AUTOMATED 274 10^3/uL (150-450); RED BLOOD COUNT 3.71 10^6/uL (4.00-5.40); WHITE BLOOD COUNT 9.1 10^3/uL (4.0-10.0)
[2020-01-01 13:13] LABS: GLUCOSE CHALLENGE TEST 1 HOUR 142 MG/DL (LESS THAN 140)
[2020-01-01 15:04] LABS: CHLAMYDIA DNA AMPLIFICATION NEGATIVE (NEGATIVE); GC DNA AMPLIFICATION NEGATIVE (NEGATIVE)
[2020-01-02 08:30] LABS: RUBELLA IgG QUALITATIVE IMMUNE (IMMUNE)
[2020-01-02 08:36] LABS: HEPATITIS B SURFACE ANTIGEN NEGATIVE (NEGATIVE)
[2020-01-02 08:59] LABS: HIV 1&2 SCREEN CENTAUR NEGATIVE (NEGATIVE)
[2020-01-02 09:04] LABS: HEPATITIS C VIRUS ABY INDEX 0.1 INDEX (<0.8)
== END ==
LOC: M PLALAB 09:59
PROVIDERS: ATTEND Advanced Practice Midwife
DX: Z34.92 Encounter for supervision of normal pregnancy, unspecified, second trimester (principal)

== ENCOUNTER → 2020-01-02 | Outpatient (CLI) | payer OTHER ==
--- NOTE | 2020-01-03 09:38 | REP ---
Obstetric sonography: History: Supervision of , followup anatomy. Comparison sonography November 28, 2019. Findings: Scanning through the gravid uterus demonstrates a single living intrauterine gestation in a footling breech lie. motion is observed and heart rate is recorded at 135 beats per minute. An anterior placenta is seen grade 2 without evidence of previa or abruption. Amniotic fluid is subjectively normal. Closed cervical length measured transabdominally is 3.0 cm. No extrauterine abnormalities observed. There has been appropriate interval growth. Four-chamber heart view is visualized and felt to be normal. spine visualization is once again somewhat limited due to position. The following additional anatomic structures are identified and felt to be unremarkable today: cranium, choroid plexus, cavum, cerebellum and posterior fossa, nuchal fold, face and profile, left and right ventricular outflow tract views, diaphragm, left-sided stomach, three-vessel cord, kidneys and bladder. Biometry chart: BPD 5.7 cm = 23 weeks 2 days HC 22.2 cm = 24 weeks 1 day AC 19.1 cm = 23 weeks 6 days FL 4.5 cm = 25 weeks 0 days HL 4.1 cm = 24 weeks 6 days HC/AC ratio normal 1.16. Cephalic index is 0.69 (0.70-0.86. Estimated weight 678 grams, 1 pound 7 ounces, 32nd percentile for 24 weeks 5 days. Impression: Viable single intrauterine gestation at 24 weeks 0 days by today's composite sonographic criteria. Expected gestational age estimate based on prior sonography is 24 weeks 5 days. FAY by prior sonography April 18, 2020. spine is still less than optimally visualized. Footling breech lie.
== END ==
LOC: M WHC 14:24
PROVIDERS: ATTEND Advanced Practice Midwife
DX: Z34.92 Encounter for supervision of normal pregnancy, unspecified, second trimester (principal)

== ENCOUNTER → 2020-01-09 | Outpatient (CLI) | payer OTHER | LOC: M LAB 07:53 | PROVIDERS: ATTEND Advanced Practice Midwife | DX: O99.810 Abnormal glucose complicating pregnancy (principal) ==

== ENCOUNTER → 2020-01-27 | Outpatient (CLI) | payer OTHER ==
[~2020-01-27] MED LIST changes: -CLIN150C14 PO; +CLIN150C15 PO; +IBUP1TAB7 PO; +PERC5TAB12 PO; +TUMS750C22 PO
== END ==
LOC: M LABSMTC 12:37
PROVIDERS: ATTEND Family Medicine
DX: Z11.59 Encounter for screening for other viral diseases (principal)
CPT/HCPCS: C8903; U0003

== ENCOUNTER → 2020-02-11 | Outpatient (CLI) | payer OTHER ==
[~2020-02-11] MED LIST changes: +CLIN150C14 PO; -CLIN150C15 PO; -IBUP1TAB7 PO; -PERC5TAB12 PO; -TUMS750C22 PO
--- NOTE | 2020-02-12 03:41 | REP ---
Clinical: Anatomical evaluation. Comparison: 01/02/2020 . Findings: Examination demonstrates a single live intrauterine in transverse (head to maternal right) presentation. motion is identified by technologist. Placenta is noted anterior and grade I without evidence for placenta previa or abruption. Amniotic fluid volume is normal. Cervix measures 5.0 cm in length and appears closed. No evidence for nuchal cord. Gestational age by LMP 30 weeks 3 days with FAY 04/18/2020 . Gestational age by current measurements 30 weeks 5 days with FAY 04/16/2020 . FHR equals 126 beats per minute. Estimated weight 1574 grams ( 43rd percentile). Amniotic fluid index: 10.1 cm Umbilical cord SD ratio: 2.92 Anatomical assessment demonstrates normal structures including cranium, cavum, posterior fossa, lungs, heart/ventricular outflow tracts, diaphragm, stomach, kidneys/bladder, and spine. Impression: Single live intrauterine in transverse lie demonstrating appropriate interval growth. In conjunction with prior examination anatomical assessment is complete and normal. Electronically Signed by Ronny Deng MD 02/12/2020 03:33 A
== END ==
LOC: M RAD 08:09
PROVIDERS: ATTEND Advanced Practice Midwife
DX: Z34.82 Encounter for supervision of other normal pregnancy, second trimester (principal)

== ENCOUNTER 2020-02-27 20:07 | Outpatient (CLI) | payer OTHER ==
[~2020-02-27] VITALS: Ht 165.1 cm; Wt 84.5 kg
[2020-02-27 20:18] VITALS: BP 119/60
[2020-02-27 21:30] LABS: HEMATOCRIT 28.4 % (36.0-47.0); HEMOGLOBIN 9.5 g/dl (12.0-15.5); MEAN CORPUSCULAR HEMOGLOBIN 27.5 pg (27.0-33.0); MEAN CORPUSCULAR HGB CONC 33.5 g/dl (32.0-36.5); MEAN CORPUSCULAR VOLUME 82.1 fl (80.0-96.0); PLATELET COUNT, AUTOMATED 237 10^3/uL (150-450); RED BLOOD COUNT 3.46 10^6/uL (4.00-5.40); WHITE BLOOD COUNT 13.7 10^3/uL (4.0-10.0)
[2020-02-27 22:57] VITALS: BP 127/60
--- NOTE | 2020-02-27 22:59 | REPVR ---
PROCEDURE INFORMATION: Exam: US ; Follow up Exam date and time: 02/27/2020 10:23 PM Age: 24 years old Clinical indication: Pain; Other: Fell; Gestational age or lmp: 32; ; Additional info: Fell downstairs, possible loss of fluid TECHNIQUE: Imaging protocol: Transabdominal ultrasound of the uterus, real time with image documentation. Follow-up (eg, re-evaluation of size by measuring standard growth parameters and amniotic fluid volume, re-evaluation of organ system(s) suspected or confirmed to be abnormal on a previous scan). COMPARISON: US OBS FOLL UP OR REPEAT EACH [facility] 02/11/2020 8:28 AM FINDINGS: Gestation: Single living fetus demonstrated. Heart rate: heart rate 141 bpm. Presentation: Fetus in cephalic presentation. Placenta: Anterior placenta without evidence of placenta previa. ANATOMICAL SURVEY: anatomy: Visualized anatomy including the intracranial structures, face, lungs, diaphragm, stomach kidneys and bladder appear unremarkable. Visualized spine is unremarkable. BIOMETRY: Estimated gestational age: Gestational age based on LMP of 07/13/2019 is 32 weeks 5 days versus 33 weeks based on earliest 1st trimester ultrasound and 32 weeks 4 days using average ultrasound measurements on today's study. Estimated weight: Estimated weight 2037 g (44th percentile) Biparietal diameter: BPD 8.1 cm new Head circumference: Head circumference 29.8 cm. Abdominal circumference: Abdominal circumference 28.6 cm. Femur length: Femur length 6.4 cm. MATERNAL: Cervix: Cervix measures 2.5 cm. Other findings: Abdominal circumference 28.6 cm, femur length 6.4 cm. Amniotic fluid volume index 12.5 cm. IMPRESSION: Unremarkable examination at 32 weeks 5 days. There has been appropriate interval growth. Amniotic fluid volume is within normal limits. PROCEDURE INFORMATION: Exam: US Biophysical Profile Without Non-Stress Test Exam date and time: 02/27/2020 10:23 PM Age: 24 years old Clinical indication: Pain; Other: Fell; Gestational age or lmp: 32; ; Additional info: Fell downstairs, possible loss of fluid TECHNIQUE: Imaging protocol: US biophysical profile without non-stress testing. COMPARISON: US OBS FOLL UP OR REPEAT EACH [facility] 02/11/2020 8:28 AM FINDINGS: Amniotic fluid index: Biophysical profile Score 8/8. BIOPHYSICAL PROFILE: Breathin/2 Gross body movements: 2/2 tone: 2/2 Qualitative amniotic fluid: 2/2 Biophysical Profile Score: 8/8 IMPRESSION: Biophysical profile Score 8/8. Electronically signed by: Jevon Toledo On 02/27/2020 22:59:04 PM
--- NOTE | 2020-02-27 23:06 | IPNPDOC ---
Text Note Date of Service The patient was seen on 02/27/20. NOTE Outpatient 24yo FAY 04/18/2020. Presents @ 32w5d with complaints on falling downstairs on her buttocks at 1800. She reports having large amount of fluid in her underwear, backache and decreased movement. Resting comfortably in bed, no apparent distress VSS, afebrile, normotensive Abdomen soft, gravid, nontender Cat I tracing Spec exam moderate creamy white cervical discharge. Neg pool, neg valsalva, faint + nitrazine (IC last night), neg fern. BPP/sono 04/24 EFW 7gm, 44%. SANJU 12.5cm, cephalic. KB 0.0000 Anemia reviewed with pt - slow Fe ordered. Pt instructed in dietary sources of iron, avoidance of dairy within one hour. Reglan ordered as pt reports "hyperemesis" with frequent spontaneous vomiting that zofran doesn't help. Discharged home. Warnings reviewed. Keep next appt VS,Fishbone, I+O VS, Fishbone, I+O Vital Signs Date Time Temp Pulse Resp B/P (MAP) Pulse Ox O2 Delivery O2 Flow Rate FiO2 02/27/20 20:18 99 119/60 (79) Kaity Olsen CNM Feb 27, 2020 21:12
== END 2020-02-27 23:05 | disposition home or self-care (01) ==
LOC: M LDO 20:07
PROVIDERS: ATTEND Advanced Practice Midwife
DX: Z04.3 Encounter for examination and observation following other accident (principal); O99.013 Anemia complicating pregnancy, third trimester; O21.2 Late vomiting of pregnancy; W10.8XXA Fall (on) (from) other stairs and steps, initial encounter; Z3A.32 32 weeks gestation of pregnancy; Y93.9 Activity, unspecified; Y92.9 Unspecified place or not applicable; Y99.9 Unspecified external cause status

== ENCOUNTER → 2020-03-16 | Outpatient (REF) | payer OTHER ==
[~2020-03-16] MED LIST changes: +TUMS750C22 PO
[2020-03-16 18:41] LABS: HEMATOCRIT 32.4 % (36.0-47.0); HEMOGLOBIN 10.3 g/dl (12.0-15.5); MEAN CORPUSCULAR HEMOGLOBIN 26.8 pg (27.0-33.0); MEAN CORPUSCULAR HGB CONC 31.8 g/dl (32.0-36.5); MEAN CORPUSCULAR VOLUME 84.4 fl (80.0-96.0); PLATELET COUNT, AUTOMATED 234 10^3/uL (150-450); RED BLOOD COUNT 3.84 10^6/uL (4.00-5.40); WHITE BLOOD COUNT 13.2 10^3/uL (4.0-10.0)
== END ==
LOC: M PLALAB 15:27
PROVIDERS: ATTEND Specialist
DX: O99.013 Anemia complicating pregnancy, third trimester (principal)

== ENCOUNTER → 2020-03-25 | Outpatient (REF) | payer OTHER ==
[~2020-03-25] MED LIST changes: +IBUP1TAB7 PO; +PERC5TAB12 PO
== END ==
LOC: M PLALAB 09:12
PROVIDERS: ATTEND Advanced Practice Midwife
DX: O99.013 Anemia complicating pregnancy, third trimester (principal); D64.9 Anemia, unspecified

== ENCOUNTER 2020-03-31 17:08 | Outpatient (CLI) | payer OTHER ==
[~2020-03-31] VITALS: Ht 165.1 cm; Wt 86.5 kg
[~2020-03-31 17:08] MED LIST changes: -IBUP1TAB7 PO; -PERC5TAB12 PO; -TUMS750C22 PO
[2020-03-31 17:24] VITALS: BP 116/56
[2020-03-31] MEDS ORDERED: MAPA500T2 PO (17:29)
[2020-03-31] MEDS ORDERED: TUMS750C22 PO (17:29)
--- NOTE | 2020-04-01 10:07 | IPN ---
DATE: 03/31/2020 Karen is a 24-year-old, 2, para 1-0-0-1, at 37-3/7 weeks gestation, estimated date of confinement (EDC) of 03/18/2020, based on last menstrual period, confirmed by first trimester ultrasound. She presents to labor and delivery today with report of low backache, generalized abdominal discomfort and uncertain if she is having contractions or not. She denies vaginal bleeding, leakage of fluid. The fetus has been active. care was initiated at [facility] in the first trimester. course complicated by ADHD, anxiety, bipolar, and anemia. OBSTETRICAL HISTORY: May 2018, 41-1/7 weeks, 6 pound 11 ounce male, vaginal delivery. OBJECTIVE: Temperature 97.2, pulse 108, respirations 18, blood pressure is 116/56. She is alert and oriented times three. She does not appear to be in any discomfort. She is smiling and talkative. heart rate is 150 with moderate variability, positive accelerations, negative decelerations. There is no pattern of contractions. Her abdomen is gravid, cephalic presentation. Sterile vaginal exam - fingertip, 25% effaced, ballottable station. ASSESSMENT: Intrauterine at 37-3/7, heart rate category 1, not in labor. PLAN: Discharge the patient to home. She is to keep her scheduled appointment at [facility] next week. We did review signs and symptoms of active labor, kick counts, danger signs to report, review of access to care. The patient has had her questions answered and is agreeable to discharge home.
== END 2020-03-31 18:00 | disposition home or self-care (01) ==
LOC: M LDO 17:08
PROVIDERS: ATTEND Advanced Practice Midwife
DX: O99.013 Anemia complicating pregnancy, third trimester (principal); O99.343 Other mental disorders complicating pregnancy, third trimester; F90.9 Attention-deficit hyperactivity disorder, unspecified type; F31.9 Bipolar disorder, unspecified; F41.9 Anxiety disorder, unspecified; Z3A.37 37 weeks gestation of pregnancy

== ENCOUNTER 2020-04-19 07:55 | Inpatient (IN) | payer OTHER ==
[~2020-04-19 07:55] MED LIST changes: +TUMS750C22 PO
[2020-04-19] MEDS ORDERED: miSOPROStol 50 MCG 1/2 TAB (S0191) As Ordered ONE ×2 (08:09→12:09)
[2020-04-19] MEDS ORDERED: miSOPROStol 50 MCG 1/2 TAB (S0191) ONE ×2 (08:09→12:09)
[2020-04-19] MEDS ORDERED: ONDANSETRON 4 MG ORAL DISINTEGRATING TAB ONE (17:03)
[2020-04-19] MEDS ORDERED: OXYTOCIN 30 UNITS IN 0.9% NaCl 500ML IV BAG (J2590) ONE (17:03)
[2020-04-19] MEDS ORDERED: OXYTOCIN 30 UNITS IN 0.9% NaCl 500ML IV BAG (J2590) As Ordered ONE (17:03)
[2020-04-19] MEDS ORDERED: ONDANSETRON 4 MG ORAL DISINTEGRATING TAB As Ordered ONE (18:27)
[2020-04-19] MEDS ORDERED: FENTANYL 2MCG/ML ROPIVACAINE 0.2% IN 0.9% NACL 100ML IVBAG ONE (19:38)
[2020-04-19] MEDS ORDERED: FENTANYL 2MCG/ML ROPIVACAINE 0.2% IN 0.9% NACL 100ML IVBAG As Ordered ONE (19:38)
[2020-04-20] MEDS ORDERED: ONDANSETRON 4MG/2ML VIAL ONE (00:54)
[2020-04-20] MEDS ORDERED: ACETAMINOPHEN 500 MG TAB ONE ×3 (00:54→19:36)
[2020-04-20] MEDS ORDERED: ONDANSETRON 4MG/2ML VIAL As Ordered ONE (00:54)
[2020-04-20] MEDS ORDERED: ACETAMINOPHEN 500 MG TAB As Ordered ONE ×3 (03:03→21:05)
[2020-04-20] MEDS ORDERED: FENTANYL 2MCG/ML ROPIVACAINE 0.2% IN 0.9% NACL 100ML IVBAG ONE (03:48)
[2020-04-20] MEDS ORDERED: FENTANYL 2MCG/ML ROPIVACAINE 0.2% IN 0.9% NACL 100ML IVBAG As Ordered ONE (03:48)
[2020-04-20] MEDS ORDERED: IBUPROFEN 800 MG TAB As Ordered ONE (19:36)
[2020-04-20] MEDS ORDERED: IBUPROFEN 800 MG TAB ONE (19:36)
[2020-04-21] MEDS ORDERED: IBUPROFEN 800 MG TAB ONE (08:14)
[2020-04-21] MEDS ORDERED: BOOSTRIX/ADACEL VACCINE (DIPHTH/PERTUSS/ACELL/TETANUS) 0.5ML SYR ONE (08:14)
[2020-04-21] MEDS ORDERED: MEASLES,MUMPS,RUBELLA VACCINE INJ (MMR-II) (90707) ONE (08:14)
[2020-04-21] MEDS ORDERED: ACETAMINOPHEN 500 MG TAB ONE (12:52)
[2020-04-22] MEDS ORDERED: IBUPROFEN 800 MG TAB ONE ×2 (02:32→14:26)
[2020-04-22] MEDS ORDERED: IBUPROFEN 800 MG TAB As Ordered ONE ×2 (02:32→14:26)
[2020-06-09 10:56] LABS: HEMOGLOBIN 10.3 g/dl (12.0-15.5); MEAN CORPUSCULAR HEMOGLOBIN 27.1 pg (27.0-33.0); MEAN CORPUSCULAR HGB CONC 33.2 g/dl (32.0-36.5); MEAN CORPUSCULAR VOLUME 81.6 fl (80.0-96.0); PLATELET COUNT, AUTOMATED 244 10^3/uL (150-450); WHITE BLOOD COUNT 10.7 10^3/uL (4.0-10.0)
[2020-07-13 10:19] LABS: HEPATITIS B SURFACE ANTIGEN NEGATIVE (NEGATIVE); HIV 1&2 SCREEN CENTAUR NEGATIVE (NEGATIVE)
== END 2020-04-22 12:00 | disposition home or self-care (01) | DRG 560 ==
LOC: M OBS 07:55
PROVIDERS: ADMIT Advanced Practice Midwife; ATTEND Advanced Practice Midwife
PROC: 3E033VJ Introduction of Other Hormone into Peripheral Vein, Percutaneous Approach (ICD-10-PCS; 2020-04-19)
PROC: 10E0XZZ Delivery of Products of Conception, External Approach (ICD-10-PCS; principal; 2020-04-20)
PROC: 10907ZC Drainage of Amniotic Fluid, Therapeutic from Products of Conception, Via Natural or Artificial Opening (ICD-10-PCS; 2020-04-20)
DX: O48.0 Post-term pregnancy (principal); D64.9 Anemia, unspecified; Z37.0 Single live birth; Z3A.40 40 weeks gestation of pregnancy; O99.02 Anemia complicating childbirth

== ENCOUNTER → 2020-06-27 | Outpatient (CLI) | payer OTHER ==
[~2020-06-27] MED LIST changes: +IBUP1TAB7 PO; +PERC5TAB12 PO
== END ==
LOC: M LABSMTC 08:08
PROVIDERS: ATTEND Anesthesiology
DX: Z01.812 Encounter for preprocedural laboratory examination (principal); Z20.828 Contact with and (suspected) exposure to other viral communicable diseases
CPT/HCPCS: C9803; U0003

== ENCOUNTER 2020-07-02 06:09 | Day surgery (SDC) | payer OTHER ==
[~2020-07-02] VITALS: Ht 167.6 cm; Wt 84.8 kg
[~2020-07-02 06:09] MED LIST changes: -IBUP1TAB7 PO; -PERC5TAB12 PO
[2020-07-02] MEDS ORDERED: LR 1,000 ML IV ONE (07:00)
[2020-07-02 07:05] LABS: HEMATOCRIT 32.9 % (36.0-47.0); HEMOGLOBIN 10.8 g/dl (12.0-15.5); MEAN CORPUSCULAR HEMOGLOBIN 26.9 pg (27.0-33.0); MEAN CORPUSCULAR HGB CONC 32.8 g/dl (32.0-36.5); MEAN CORPUSCULAR VOLUME 81.8 fl (80.0-96.0); PLATELET COUNT, AUTOMATED 288 10^3/uL (150-450); RED BLOOD COUNT 4.02 10^6/uL (4.00-5.40); WHITE BLOOD COUNT 5.6 10^3/uL (4.0-10.0)
[2020-07-02] MEDS ORDERED: BUPIVACAINE HCL 0.25% 30ML VIAL As Ordered ONE (07:16)
[2020-07-02] MEDS ORDERED: KETOROLAC 60MG 2ML VIAL As Ordered ONE (07:21)
[2020-07-02] MEDS ORDERED: ACETAMINOPHEN 1000MG 100ML IV BTL (OFIRMEV) (J0131 PER 10MG) As Ordered ONE (07:21)
[2020-07-02] MEDS ORDERED: dexameTHASONE 4 MG/ML 1ML VIAL (J1100 PER 1MG) As Ordered ONE (07:21)
[2020-07-02] MEDS ORDERED: LIDOCAINE 2% 100MG/5ML SDV (FOR ANES.) As Ordered ONE (07:21)
[2020-07-02] MEDS ORDERED: propofoL 200 MG/20 ML VIAL As Ordered ONE (07:21)
[2020-07-02] MEDS ORDERED: ROCURONIUM BROMIDE 50 MG/5 ML VIAL As Ordered ONE (07:21)
[2020-07-02] MEDS ORDERED: ONDANSETRON 4MG/2ML VIAL As Ordered ONE (07:21)
[2020-07-02] MEDS ORDERED: SUGAMMADEX SODIUM 500 MG/5 ML VIAL (BRIDION) As Ordered ONE (07:21)
[2020-07-02] MEDS ORDERED: MIDAZOLAM INJ 2MG/2ML VIAL (J2250 PER 1MG) As Ordered ONE (07:22)
[2020-07-02] MEDS ORDERED: fentaNYL 100 MCG/2 ML INJECTION (J3010) As Ordered ONE ×2 (07:22→08:41)
[2020-07-02] MEDS ORDERED: SCOPOLAMINE 1MG TRANSDERMAL PATCH As Ordered ONE (07:34)
[2020-07-02] MEDS ORDERED: IBUP1TAB7 PO (07:38)
[2020-07-02] MEDS ORDERED: PERC5TAB12 PO (07:40)
[2020-07-02] MEDS ORDERED: SCOPOLAMINE 1MG TRANSDERMAL PATCH TOP ONE (07:45)
[2020-07-02] MEDS: fentaNYL 100 MCG/2 ML INJECTION (J3010) IV PRN ×4 (08:37→09:06)
[2020-07-02] MEDS ORDERED: ONDANSETRON 4MG/2ML VIAL IV PRN (09:15)
[2020-07-02] MEDS ORDERED: PERCOCET 5MG/325MG TAB PO PRN (09:15)
[2020-07-02] MEDS ORDERED: MEPERIDINE INJ 25 MG/ML VIAL (J2175) IV PRN (09:15)
[2020-07-02] MEDS ORDERED: METOCLOPRAMIDE INJ 10MG/2ML VIAL (J2765 PER 1) IV PRN (09:15)
[2020-07-02] MEDS ORDERED: LR 1,000 ML IV SCH (09:15)
[2020-07-02] MEDS ORDERED: oxyCODONE 5MG TAB PO PRN (09:15)
--- NOTE | 2020-07-02 10:01 | ROOPDOC ---
[facility] Report Of Operation Report of Operation DATE OF PROCEDURE: 07/02/20 PREPROCEDURE DIAGNOSES: Satisfied parity with undesired fertility. POSTPROCEDURE DIAGNOSES: Satisfied parity with undesired fertility. PROCEDURE: Diagnostic operative laparoscopy with bilateral salpingectomy for purpose of tubal ligation.. SURGEON: Angelica Banerjee MD OPENSTACK CLOUD CONSULTING ARCHITECT: None ANESTHESIA: General endotracheal anesthesia. INTRAVENOUS FLUIDS: 900 mL of lactated Ringer's solution. ESTIMATED BLOOD LOSS: Approximately 5 mL. URINE OUTPUT: 300 mL. PREOPERATIVE ANTIBIOTICS: None. SPECIMENS: Bilateral fallopian tubes. COMPLICATIONS: None OPERATIVE FINDINGS: Patient with normal appearing uterus and bilateral adnexa. DESCRIPTION OF PROCEDURE: After informed consent was obtained and written consent was reviewed, the patient was brought to the operating room where she was placed under general endotracheal anesthesia. She was then placed in the lithotomy position. She was prepped and draped in a normal sterile fashion. A time-out in the operating room was then performed identifying the patient, procedure to be performed, as well as drug allergies. Tipton speculum was then placed revealing the cervix. The anterior lip of the cervix was grasped with a single-tooth tenaculum. A Hulka tenaculum was then advanced through the cervical os for a means to manipulate the uterus. Single-tooth tenaculum as well as the speculum was removed. Cruz catheter was then placed and set to gravity. Gloves were changed. Attention was turned to the patient's abdomen where 0.25% Marcaine was infused in umbilical region. This area was incised and a 5 mm trocar and sleeve was advanced through this incision. The laparoscope was then replaced revealing intraabdominal placement. Pneumoperitoneum was then obtained with CO2 gas. The abdomen was then surveyed with the above-noted findings. Two additional port sites were placed. One port site was placed 2 cm above the pubis symphysis in the midline. This area was infused with 0.25% Marcaine. An incision was made in this area and 8 mm trocar and sleeve was advanced through this incision under direct visualization. A second accessory port was placed left side of the patient's abdomen. This area was infused with 0.25% Marcaine. A 5 mm trocar and sleeve was advanced through this incision under direct visualization. Next, the right fallopian tube was then placed on traction. Using Harmonic Clayton scalpel device, the mesosalpinx was dissected underneath the fallopian tube and was transected at the level of the uterus. Specimen was then brought out the port site. In a similar fashion, left fallopian tube was dissected along the left mesosalpinx underneath the fallopian tube and transected at the level of the uterus. The specimen was removed. Surgical sites were inspected and noted to be hemostatic. Pneumoperitoneum was then released and port sites were then closed with #4-0 Monocryl and was dressed with Dermabond. Cruz catheter as well as a Hulka tenaculum was removed. The patient was then taken out of the lithotomy position, was awakened from general anesthesia and taken to recovery in stable condition. Counts were correct. ANGELICA BANERJEE MD. Jul 02, 2020 10:01
[2020-07-02 11:10] VITALS: BP 115/69
[2020-07-02] MEDS ORDERED: KETOROLAC 30 MG/ML 1ML VIAL IV SCH (14:00)
== END 2020-07-02 11:10 | disposition home or self-care (01) ==
LOC: M SDC 06:09
PROVIDERS: ATTEND Obstetrics & Gynecology
DX: Z30.2 Encounter for sterilization (principal); K21.9 Gastro-esophageal reflux disease without esophagitis; Z79.899 Other long term (current) drug therapy; Z88.0 Allergy status to penicillin; Z88.1 Allergy status to other antibiotic agents
CPT/HCPCS: 36415; 58661; 81025; 85027; 86850; 86900; 86901; 88302; J0131; J1100; J1885; J2250; J2405; J3010

== ENCOUNTER → 2020-12-03 | Outpatient (CLI) | payer OTHER ==
[~2020-12-03] MED LIST changes: -CLIN150C14 PO; +CLIN150C15 PO; +IBUP1TAB7 PO; +PERC5TAB12 PO
== END ==
LOC: M PLARAD 12:02
PROVIDERS: ATTEND Physician Assistant Medical
DX: R51.9 Headache, unspecified (principal)

== ENCOUNTER → 2020-12-24 | Outpatient (CLI) | payer OTHER ==
--- NOTE | 2020-12-24 13:25 | REP ---
INDICATION: CRUZ'S. COMPARISON: None. TECHNIQUE: Axial T1, T2, stir, gradient MR images obtained of the brain. FINDINGS: No evidence of restricted diffusion to suggest acute infarction. No gradient echo susceptibility to suggest hemorrhage. The ventricles and extra-axial CSF spaces are within normal limits. No mass effect or midline shift. No abnormal fluid collections. Paranasal sinuses and mastoid air cells are clear. Note made of empty sella. This is an atypical finding in a female of childbearing years. Also noted tortuosity of the optic nerves and mild flattening of the globes (possible papilledema). These findings are nonspecific but have been correlated with elevated intracranial pressure (pseudotumor cerebri). IMPRESSION: No acute findings. Imaging findings that may suggest pseudotumor cerebri as a cause for headaches. Neurological consult and clinical correlation suggested. <Electronically signed by Hudson Galarza > 12/24/20 [id number]
== END ==
LOC: M PLARAD 12:14
PROVIDERS: ATTEND Physician Assistant Medical
DX: R51.9 Headache, unspecified (principal)

== ENCOUNTER → 2020-12-31 | Outpatient (REF) | payer OTHER ==
[~2020-12-31] MED LIST changes: +PROP10TA56 PO; +SUMA25TA3 PO
[2020-12-31 13:19] LABS: INR 0.98; PROTHROMBIN TIME 13.1 SECONDS (12.5-14.3)
[2020-12-31 13:20] LABS: PARTIAL THROMBOPLASTIN TIME 29.9 SECONDS (24.2-38.5)
== END ==
LOC: M SFHCPLAZ 11:10
PROVIDERS: ATTEND Physician Assistant Medical
DX: G93.2 Benign intracranial hypertension (principal)

== ENCOUNTER → 2021-01-03 | Outpatient (CLI) | payer OTHER ==
[~2021-01-03] MED LIST changes: +LIDOCAINE 1% MDV 20ML VIAL As Ordered ONE; +SODIUM BICARBONATE 8.4% INJ 50MEQ 50 ML VIAL As Ordered ONE
[2021-01-03 14:10] LABS: CSF TUBE# GLU TUBE 1; CSF TUBE# TP TUBE 1; GLUCOSE CSF 63 MG/DL (40-75); TOTAL PROTEIN,CSF 27 MG/DL (15-45)
[2021-01-03 14:14] LABS: APPEARANCE, CSF CLEAR (CLEAR); COLOR, CSF COLORLESS (COLORLESS); CSF TUBE# CELL CNT TUBE 1
[2021-01-03 15:45] VITALS: BP 111/78
--- NOTE | 2021-01-04 06:51 | REP ---
PROCEDURE NAME: FLUORO GUIDE SPINE INJECTION SEDATION: None CLINICAL INFORMATION: LUMBAR PUNCTURE. PHYSICIAN: Marija Joaquin PROCEDURE DESCRIPTION: The procedure was performed by CACHORRO Vaca, under the direct supervision of Dr. Hernandez. The risks and benefits of the procedure were explained to the patient and an informed consent was obtained both verbally and written. Directly prior to the start of the procedure a formal time-out was completed in the procedure room. The L3-4 interspace was localized using fluoroscopic guidance. The skin was prepped and draped in a sterile fashion. Five mL of 1 % lidocaine 10 milligrams/milliliter was used as a local anesthetic. Using fluoroscopic guidance a 22 gauge spinal needle was inserted and advanced without significant difficulty in to the cerebral spinal space at the L3-4 interspinous level. Clear freely flowing cerebral spinal fluid was retrieved. The initial opening pressure measured by manometry at [address] Rizzo the ordering physician was called and given the opening pressure results. A total of 12 mL of cerebral spinal fluid was withdrawn gently and submitted to the lab for routine analysis. The needle was withdrawn. 0.1 minutes of fluoroscopy time was utilized for this procedure. Some fluoroscopic images are performed with last image hold technology. These images require no additional radiation. The patient tolerated the procedure well and there were no immediate complications. After the appropriate amount of monitored chondral assist the patient was discharged back to the unit. ESTIMATED BLOOD LOSS: Less than 1 mL COMPLICATIONS: None CONCLUSION: Lumbar puncture and CSF retrieval under fluoroscopic guidance. <Electronically signed by Marija Joaquin > 01/03/21 1650 <Electronically signed by Duarte Hernandez > 01/04/21 [id number]
== END ==
LOC: M IRPRO 12:17
PROVIDERS: ATTEND Physician Assistant Medical
DX: G93.2 Benign intracranial hypertension (principal); Z88.0 Allergy status to penicillin; Z88.1 Allergy status to other antibiotic agents

== ENCOUNTER 2021-01-15 16:44 | Emergency (ER) | payer OTHER ==
[~2021-01-15] VITALS: Ht 167.6 cm; Wt 86.4 kg
[~2021-01-15 16:44] MED LIST changes: -LIDOCAINE 1% MDV 20ML VIAL As Ordered ONE; -SODIUM BICARBONATE 8.4% INJ 50MEQ 50 ML VIAL As Ordered ONE
[2021-01-15] MEDS ORDERED: NS 1,000 ML IV ONE ×2 (17:00→18:30)
[2021-01-15] MEDS ORDERED: ONDANSETRON 4MG/2ML VIAL IV ONE (17:10)
[2021-01-15 17:23] LABS: BASO % 0.2 % (0.0-1.0); EOS % 0.1 % (0.0-3.0); HEMATOCRIT 38.7 % (36.0-47.0); HEMOGLOBIN 13.1 g/dl (12.0-15.5); LYMPH # 0.3 10^3/uL (1.5-5.0); MEAN CORPUSCULAR HGB CONC 33.9 g/dl (32.0-36.5); MEAN CORPUSCULAR VOLUME 79.8 fl (80.0-96.0); MONO # 0.4 10^3/uL (0.0-0.8); MONO % 4.6 % (2.0-8.0); NEUTROPHILS # 8.8 10^3/uL (1.5-8.5); NEUTROPHILS % 91.8 % (36.0-66.0); PLATELET COUNT, AUTOMATED 328 10^3/uL (150-450); RED BLOOD COUNT 4.85 10^6/uL (4.00-5.40); WHITE BLOOD COUNT 9.6 10^3/uL (4.0-10.0)
[2021-01-15 17:49] LABS: ALBUMIN 3.9 GM/DL (3.2-5.2); ALT/SGPT 18 U/L (12-78); AMYLASE 44 U/L (25-115); BILIRUBIN,DIRECT 0.1 MG/DL (0.0-0.2); BILIRUBIN,TOTAL 0.7 MG/DL (0.2-1.0); CK-MB VALUE MASS < 1.0 NG/ML (<3.6); CPK CREATINE PHOSPHOKINASE 62 U/L (26-192); LIPASE 56 U/L (73-393); MB/CK RELATIVE INDEX 1.61 (< OR =4); TROPONIN I < 0.02 NG/ML (< 0.10)
[2021-01-15] MEDS ORDERED: ISOVUE-370 76% 100ML VIAL As Ordered ONE (18:04)
[2021-01-15 18:12] LABS: RSV AMPLIFICATION NEGATIVE (NEGATIVE)
--- NOTE | 2021-01-15 18:17 | REPVR ---
PROCEDURE INFORMATION: Exam: XR Right Tibia and Fibula Exam date and time: 01/15/2021 5:53 PM Age: 25 years old Clinical indication: Pain; Lower leg; Right; Additional info: Right leg injur TECHNIQUE: Imaging protocol: XR Right tibia and fibula. Views: 2 views. COMPARISON: No relevant prior studies available. FINDINGS: Bones/joints: Normal. Soft tissues: Normal. IMPRESSION: No acute findings. Electronically signed by: Jevon Toledo On 01/15/2021 18:17:36 PM
--- NOTE | 2021-01-15 18:41 | REPVR ---
PROCEDURE INFORMATION: Exam: CT Abdomen And Pelvis With Contrast Exam date and time: 01/15/2021 6:19 PM Age: 25 years old Clinical indication: Abdominal pain; Generalized; Additional info: Abdominal pain, vomiting TECHNIQUE: Imaging protocol: Computed tomography of the abdomen and pelvis with contrast. Radiation optimization: All CT scans at this facility use at least one of these dose optimization techniques: automated exposure control; mA and/or kV adjustment per patient size (includes targeted exams where dose is matched to clinical indication); or iterative reconstruction. Contrast material: ISOVUE 370; Contrast volume: 100 ml; Contrast route: INTRAVENOUS (IV); COMPARISON: CT ABD/PEL W/IV CONTRAST ONLY 12/16/2016 4:21 AM FINDINGS: Liver: There is a diffuse decrease in hepatic parenchymal density, consistent with steatosis. Gallbladder and bile ducts: There has been a cholecystectomy. Pancreas: Normal. No ductal dilation. Spleen: Borderline splenomegaly. Adrenal glands: Normal. No mass. Kidneys and ureters: Normal. No hydronephrosis. Stomach and bowel: There is mildly increased feces throughout the colon consistent with constipation. Appendix: No evidence of appendicitis. Intraperitoneal space: There is minimal fluid in the cul-de-sac most likely physiologic. Clinical correlation to exclude other causes of cul-de-sac fluid suggested. Vasculature: Unremarkable. No abdominal aortic aneurysm. Lymph nodes: Unremarkable. No enlarged lymph nodes. Urinary bladder: Unremarkable as visualized. Reproductive: Configuration of the endometrial lucency consistent with an arcuate or subseptate uterus. Bones/joints: Unremarkable. No acute fracture. Soft tissues: Unremarkable. IMPRESSION: 1. There is a diffuse decrease in hepatic parenchymal density, consistent with steatosis. 2. There has been a cholecystectomy. 3. There is mildly increased feces throughout the colon consistent with constipation. 4. Configuration of the endometrial lucency consistent with an arcuate or subseptate uterus. Confirmation with nonemergent ultrasound could be obtained if clinically desired. Electronically signed by: Jevon Toledo On 01/15/2021 18:40:47 PM
--- NOTE | 2021-01-15 19:25 | ECGEPIP ---
[facility] - ED Test Date: 2021-01-15 Pat Name: NIXON LIRIANO Department: Room: - Gender: Female Processing Lead: SUE : 1995 Requested By: Ryan Wheat Order Number: [id number] Reading MD: Ryan Wheat Measurements Intervals Carpenter Rate: 136 P: 25 AK: 136 QRS: 21 QRSD: 82 T: 41 QT: 296 QTc: 445 Interpretive Statements Sinus tachycardia Delayed R wave progression cw 07/01/[address] T wave changes Electronically Signed on 01-15-2021 19:24:52 EDT by Ryan Wheat
[2021-01-15] MEDS ORDERED: ONDANSETRON 4 MG ORAL DISINTEGRATING TAB PO ONE (20:10)
[2021-01-15] MEDS ORDERED: DICY10CA13 PO (20:10)
[2021-01-15] MEDS ORDERED: ONDA4TAB6 PO (20:10)
[2021-01-15 20:15] VITALS: BP 100/54
--- NOTE | 2021-01-17 20:06 | ED PDOC ---
Post-Departure Follow-Up ct abd/p report faxed to [facility] for [facility] Ryan Berman MD January 17, 2021 20:06
== END 2021-01-15 20:32 | disposition home or self-care (01) ==
LOC: M ED 16:44
DX: R11.2 Nausea with vomiting, unspecified (principal); R00.1 Bradycardia, unspecified; K76.89 Other specified diseases of liver; R10.9 Unspecified abdominal pain; M79.604 Pain in right leg; R42 Dizziness and giddiness; R51.9 Headache, unspecified; F41.9 Anxiety disorder, unspecified; M54.9 Dorsalgia, unspecified; Z88.0 Allergy status to penicillin; Z88.1 Allergy status to other antibiotic agents; Z79.899 Other long term (current) drug therapy
CPT/HCPCS: 73590; 74177; 80047; 80076; 82150; 82550; 82553; 83605; 83690; 84702; 85025; 87040; 87631; 93005; 93041; 96361; 96374; 99285; J2405; Q0162; Q9967

== ENCOUNTER → 2021-12-12 | Outpatient (CLI) | payer OTHER ==
[~2021-12-12] MED LIST changes: -CLIN150C15 PO; +CLIN150C17 PO; +DICY10CA13 PO; +OMEP40CA4 PO; -OMEP40CA97 PO
[2021-12-12 15:31] LABS: BASO % 0.4 % (0.0-1.0); EOS # 0.1 10^3/uL (0.0-0.5); EOS % 1.6 % (0.0-3.0); HEMATOCRIT 33.7 % (36.0-47.0); LYMPH % 28.8 % (24.0-44.0); MEAN CORPUSCULAR HEMOGLOBIN 25.9 pg (27.0-33.0); MEAN CORPUSCULAR HGB CONC 32.6 g/dl (32.0-36.5); MEAN CORPUSCULAR VOLUME 79.5 fl (80.0-96.0); MONO # 0.8 10^3/uL (0.0-0.8); MONO % 11.5 % (2.0-8.0); NEUTROPHILS % 57.6 % (36.0-66.0); PLATELET COUNT, AUTOMATED 313 10^3/uL (150-450); RED BLOOD COUNT 4.24 10^6/uL (4.00-5.40)
[2021-12-12 16:07] LABS: ALBUMIN 3.5 GM/DL (3.2-5.2); ALT/SGPT 25 U/L (12-78); BILIRUBIN,TOTAL 0.4 MG/DL (0.2-1.0); BLOOD UREA NITROGEN 8 MG/DL (7-18); CALCIUM LEVEL 8.7 MG/DL (8.5-10.1); CARBON DIOXIDE LEVEL 26 MEQ/L (21-32); CHLORIDE LEVEL 108 MEQ/L (98-107); CHOLESTEROL LEVEL 165 MG/DL (<200); CHOLESTEROL RISK RATIO 5.689 (<5); CREATININE FOR GFR 0.54 MG/DL (0.55-1.30); FREE T4 0.98 NG/DL (0.76-1.46); GLOMERULAR FILTRATION RATE > 60.0 (>60); GLUCOSE, FASTING 89 MG/DL (70-100); HDL CHOLESTEROL 29 MG/DL (>40); LDL CHOLESTEROL 69 MG/DL (<100); NON-HDL-C 136 MG/DL; POTASSIUM SERUM 3.8 MEQ/L (3.5-5.1); SODIUM LEVEL 139 MEQ/L (136-145); THYROID STIMULATING HORMONE 0.965 uIU/ML (0.358-3.740); TOTAL PROTEIN 7.1 GM/DL (6.4-8.2); TRIGLYCERIDES LEVEL 335 MG/DL (<150)
== END ==
LOC: M PLALAB 13:16
PROVIDERS: ATTEND Physician Assistant Medical
DX: E66.9 Obesity, unspecified (principal)

== ENCOUNTER → 2022-02-18 | Outpatient (CLI) | payer OTHER | LOC: M RAD 15:36 | PROVIDERS: ATTEND Physician Assistant | DX: G93.2 Benign intracranial hypertension (principal); J34.9 Unspecified disorder of nose and nasal sinuses ==

== ENCOUNTER → 2022-04-24 | Outpatient (CLI) | payer OTHER | LOC: M PLALAB 13:25 | PROVIDERS: ATTEND Physician Assistant Medical | DX: R00.0 Tachycardia, unspecified (principal) ==

== ENCOUNTER 2023-04-11 02:59 | Emergency (ER) | payer OTHER ==
[~2023-04-11] VITALS: Ht 165.1 cm; Wt 93.6 kg
[~2023-04-11 02:59] MED LIST changes: +DICY-61 PO; -DICY10CA13 PO
[2023-04-11 03:00] VITALS: BP 131/72; TEMP 96.8; O2SAT 97
[2023-04-12] MEDS ORDERED: CLON1TAB8 PO (13:06)
[2023-04-12] MEDS ORDERED: METH20CA2 PO (13:06)
== END 2023-04-11 06:30 | disposition left against medical advice (07) ==
LOC: M ED 02:59
DX: Z53.21 Procedure and treatment not carried out due to patient leaving prior to being seen by health care provider (principal)

== ENCOUNTER 2023-04-12 07:53 | Inpatient (IN) | payer OTHER ==
[~2023-04-12] VITALS: Ht 165.1 cm; Wt 91.9 kg
[2023-04-12] MEDS ORDERED: NS 1,000 ML in IV 1 EA IV ONE (08:05)
[2023-04-12] MEDS ORDERED: MOXIFLOXACIN HCL 400 MG in IV 1 EA IV ONE (08:05)
[2023-04-12 08:37] LABS: BASO % 0.3 % (0.0-1.0); EOS % 0.2 % (0.0-3.0); HEMATOCRIT 31.4 % (36.0-47.0); HEMOGLOBIN 10.7 g/dl (12.0-15.5); LYMPH # 1.2 10^3/uL (1.5-5.0); LYMPH % 10.1 % (24.0-44.0); MEAN CORPUSCULAR HEMOGLOBIN 26.8 pg (27.0-33.0); MEAN CORPUSCULAR HGB CONC 34.1 g/dl (32.0-36.5); MEAN CORPUSCULAR VOLUME 78.7 fl (80.0-96.0); MONO # 0.9 10^3/uL (0.0-0.8); MONO % 7.3 % (2.0-8.0); NEUTROPHILS # 9.6 10^3/uL (1.5-8.5); NEUTROPHILS % 81.6 % (36.0-66.0); PLATELET COUNT, AUTOMATED 311 10^3/uL (150-450); RED BLOOD COUNT 3.99 10^6/uL (4.00-5.40); WHITE BLOOD COUNT 11.8 10^3/uL (4.0-10.0)
[2023-04-12] MEDS ORDERED: ISOVUE-370 76% 100ML VIAL As Ordered ONE (08:37)
[2023-04-12 09:02] LABS: AMYLASE 36 U/L (30-118)
[2023-04-12 09:08] LABS: RSV AMPLIFICATION NEGATIVE (NEGATIVE)
[2023-04-12 09:09] LABS: PROCALCITONIN <0.04 ng/ml
[2023-04-12 09:11] LABS: ALBUMIN 3.9 G/DL (3.2-5.2); ALKALINE PHOSPHATASE 120 U/L (46-116); ALT/SGPT 44 U/L (7.0-40); AST/SGOT 46 U/L (<34); BILIRUBIN,DIRECT 0.3 MG/DL (<0.4); BILIRUBIN,TOTAL 0.7 MG/DL (0.3-1.2); BLOOD UREA NITROGEN < 5 MG/DL (9-23); CALCIUM LEVEL 8.7 MG/DL (8.5-10.1); CARBON DIOXIDE LEVEL 19 MMOL/L (20-31); CHLORIDE LEVEL 107 MMOL/L (98-107); CREATININE FOR GFR 0.45 MG/DL (0.55-1.30); GLOMERULAR FILTRATION RATE > 60.0 (>60); GLUCOSE, FASTING 103 MG/DL (60-100); POTASSIUM SERUM 3.5 MMOL/L (3.5-5.1); SODIUM LEVEL 139 MMOL/L (136-145); TOTAL PROTEIN 7.5 G/DL (5.7-8.2)
[2023-04-12] MEDS ORDERED: diphenhydrAMINE 50MG/ML VIAL IV STA (09:43)
[2023-04-12] MEDS ORDERED: dexAMETHasone 20MG/5ML VIAL IV ONE (09:45)
[2023-04-12] MEDS ORDERED: NS 1,000 ML IV ONE (10:20)
[2023-04-12] MEDS ORDERED: VANCOMYCIN HCL 1,750 MG in NS 250 ML IV ONE (10:20)
[2023-04-12] MEDS ORDERED: VANCOMYCIN HCL 1,000 MG, VIAL MATE ADAPTER 1 EACH in D5W 250 ML IV ONE (10:30)
[2023-04-12] MEDS ORDERED: MED REC IN PROGRESS XX SCH (10:55)
[2023-04-12] MEDS ORDERED: MORPHINE 2 MG/ML 1ML VIAL IV PRN ×2 (11:20→18:10)
[2023-04-12] MEDS ORDERED: VANCOMYCIN HCL 750 MG, VIAL MATE ADAPTER 1 EACH in D5W 250 ML IV SCH (11:20)
[2023-04-12] MEDS ORDERED: VANCOMYCIN HCL 750 MG, VIAL MATE ADAPTER 1 EACH in D5W 250 ML IV ONE (11:30)
[2023-04-12] MEDS: ACETAMINOPHEN TAB 650MG DOSE (2X325MG) PO PRN ×2 (12:24→18:38)
[2023-04-12] MEDS ORDERED: CLON1TAB8 PO (13:06)
[2023-04-12] MEDS ORDERED: METH20CA2 PO (13:06)
[2023-04-12] MEDS ORDERED: HOME MED LIST COMPLETE! XX SCH (13:15)
[2023-04-12] MEDS ORDERED: LIDOCAINE 2% 100MG/5ML SDV (FOR ANES.) As Ordered ONE (16:06)
[2023-04-12] MEDS ORDERED: ROCURONIUM BROMIDE 50MG/5ML VIAL As Ordered ONE (16:06)
[2023-04-12] MEDS ORDERED: MIDAZOLAM INJ 2MG/2ML VIAL As Ordered ONE ×2 (16:07→17:12)
[2023-04-12] MEDS ORDERED: propofoL 200 MG/20 ML VIAL As Ordered ONE (16:07)
[2023-04-12] MEDS ORDERED: fentaNYL 100 MCG/2 ML INJECTION As Ordered ONE (16:07)
[2023-04-12] MEDS ORDERED: ONDANSETRON 4MG 2ML VIAL As Ordered ONE (16:07)
[2023-04-12 16:15] VITALS: BP 134/81; TEMP 96.5; O2SAT 96
[2023-04-12] MEDS ORDERED: LIDOCAINE 2% W/ EPINEPHRINE 1.7 ML DENTAL INJ As Ordered ONE (17:05)
[2023-04-12] MEDS ORDERED: SCOPOLAMINE 1MG TRANSDERMAL PATCH As Ordered ONE (17:20)
[2023-04-12] MEDS ORDERED: ESMOLOL INJ 100MG/10ML VIAL As Ordered ONE (17:50)
[2023-04-12] MEDS ORDERED: SUGAMMADEX SODIUM 500 MG/5 ML VIAL (BRIDION) As Ordered ONE (17:58)
[2023-04-12] MEDS ORDERED: KETOROLAC 60MG 2ML VIAL As Ordered ONE (18:02)
[2023-04-12] MEDS ORDERED: METOCLOPRAMIDE INJ 10MG/2ML VIAL As Ordered ONE (18:02)
[2023-04-12] MEDS ORDERED: ONDANSETRON 4MG 2ML VIAL IV PRN (18:10)
[2023-04-12] MEDS ORDERED: fentaNYL 100 MCG/2 ML INJECTION IV PRN (18:10)
[2023-04-12] MEDS: oxyCODONE 5MG TAB PO PRN ×2 (18:39→19:19)
[2023-04-12 20:00] VITALS: BP 121/70; TEMP 98; O2SAT 99
[2023-04-12 20:30] VITALS: BP 104/58; TEMP 97; O2SAT 95
[2023-04-12] MEDS: VANCOMYCIN HCL 1,000 MG, VIAL MATE ADAPTER 1 EACH in D5W 250 ML IV SCH (20:42)
[2023-04-12 21:00] VITALS: BP 120/68; TEMP 97.2; O2SAT 97
[2023-04-12 22:00] VITALS: BP 108/58; TEMP 96.4; O2SAT 95
[2023-04-12 23:00] VITALS: BP 114/62; TEMP 96.5; O2SAT 95
[2023-04-12] MEDS ORDERED: VIAL MATE ADAPTER XX ONE (23:06)
[2023-04-13] VITALS: BP 116/66; TEMP 96.3; O2SAT 96
[2023-04-13] MEDS: ACETAMINOPHEN TAB 650MG DOSE (2X325MG) PO PRN ×3 (00:42→12:05)
[2023-04-13 00:50] VITALS: O2SAT 87
[2023-04-13 01:00] VITALS: BP 111/57; TEMP 97; O2SAT 97
[2023-04-13 04:00] VITALS: BP 106/55; TEMP 96.7; O2SAT 96
[2023-04-13] MEDS: VANCOMYCIN HCL 1,000 MG, VIAL MATE ADAPTER 1 EACH in D5W 250 ML IV SCH ×2 (04:26→12:04)
[2023-04-13 06:33] LABS: HEMATOCRIT 29.3 % (36.0-47.0); HEMOGLOBIN 9.9 g/dl (12.0-15.5); MEAN CORPUSCULAR HEMOGLOBIN 26.6 pg (27.0-33.0); MEAN CORPUSCULAR HGB CONC 33.8 g/dl (32.0-36.5); MEAN CORPUSCULAR VOLUME 78.8 fl (80.0-96.0); PLATELET COUNT, AUTOMATED 306 10^3/uL (150-450); RED BLOOD COUNT 3.72 10^6/uL (4.00-5.40); WHITE BLOOD COUNT 10.2 10^3/uL (4.0-10.0)
[2023-04-13 06:57] LABS: BLOOD UREA NITROGEN 7 MG/DL (9-23); CALCIUM LEVEL 8.7 MG/DL (8.5-10.1); CARBON DIOXIDE LEVEL 22 MMOL/L (20-31); CHLORIDE LEVEL 107 MMOL/L (98-107); CREATININE FOR GFR 0.41 MG/DL (0.55-1.30); GLOMERULAR FILTRATION RATE > 60.0 (>60); GLUCOSE, FASTING 162 MG/DL (60-100); MAGNESIUM LEVEL 1.7 MG/DL (1.8-2.4); POTASSIUM SERUM 3.8 MMOL/L (3.5-5.1); SODIUM LEVEL 140 MMOL/L (136-145)
[2023-04-13 07:57] VITALS: BP 117/69; TEMP 96.5; O2SAT 99
[2023-04-13] MEDS ORDERED: MOXIFLOXACIN HCL 400 MG in IV 1 EA IV SCH (08:00)
[2023-04-13] MEDS ORDERED: ACET1TAB55 PO (09:29)
[2023-04-13] MEDS ORDERED: MOXI1TAB PO (09:29)
[2023-04-13] MEDS ORDERED: MAGNESIUM OXIDE 400MG TAB (MAG-OX) PO ONE (10:00)
[2023-04-13 12:00] VITALS: BP 115/68; TEMP 97; O2SAT 97
[2023-04-13] MEDS ORDERED: CLIN150C17 PO (13:48)
[2023-04-13] MEDS ORDERED: LEVO1TAB40 PO (13:48)
[2023-04-13] MEDS ORDERED: clonazePAM 0.5 MG TAB PO SCH (16:00)
== END 2023-04-13 15:44 | disposition home or self-care (01) | DRG 98 ==
LOC: M ED 07:53 → EDBD 07:53 → M ED INP 11:16 → ENRESERV 14:37 → M PED 16:02
PROVIDERS: ADMIT Family Medicine; ATTEND Family Medicine
PROC: 0CDWXZ0 Extraction of Upper Tooth, Single, External Approach (ICD-10-PCS; 2023-04-12)
PROC: 0W940ZZ Drainage of Upper Jaw, Open Approach (ICD-10-PCS; principal; 2023-04-12 17:00)
DX: K04.7 Periapical abscess without sinus (principal); L03.211 Cellulitis of face; E78.5 Hyperlipidemia, unspecified; L03.213 Periorbital cellulitis; Z88.0 Allergy status to penicillin; Z88.5 Allergy status to narcotic agent; Z79.899 Other long term (current) drug therapy

== ENCOUNTER → 2024-09-04 | Outpatient (REF) | payer OTHER ==
[~2024-09-04] MED LIST changes: +ACET1TAB55 PO; +CLON1TAB8 PO; +LEVO1TAB40 PO; +METH20CA2 PO; +MOXI1TAB PO; +ONDA-282 PO; -ONDA4TAB6 PO
[2024-09-04 13:31] LABS: Trichomonas vaginalis (AMP) NOT DETECTED (NEGATIVE)
[2024-09-04 13:54] LABS: GC DNA AMPLIFICATION NEGATIVE (NEGATIVE)
== END ==
LOC: M LAB REF 11:17
PROVIDERS: ATTEND Nurse Practitioner Family
DX: Z11.3 Encounter for screening for infections with a predominantly sexual mode of transmission (principal); R30.0 Dysuria

== ENCOUNTER 2024-10-08 19:48 | Emergency (ER) | payer OTHER ==
[~2024-10-08] VITALS: Ht 167.6 cm; Wt 84.6 kg
[2024-10-08] MEDS: KETOROLAC 30 MG/ML 1ML VIAL IV ONE (23:58)
[2024-10-08] MEDS: METHOCARBAMOL 1,000 MG/10 ML VIAL IV ONE (23:58)
[2024-10-09] MEDS ORDERED: TYLE650T38 PO (02:12)
[2024-10-09] MEDS ORDERED: NAPR1TAB86 PO (02:12)
[2024-10-09] MEDS ORDERED: METH-1164 PO (02:12)
[2024-10-09 02:24] VITALS: BP 131/79; TEMP 97.5; O2SAT 98
== END 2024-10-09 02:30 | disposition home or self-care (01) ==
LOC: M ED 19:48
DX: S39.012A Strain of muscle, fascia and tendon of lower back, initial encounter (principal); S13.4XXA Sprain of ligaments of cervical spine, initial encounter; V49.40XA Driver injured in collision with unspecified motor vehicles in traffic accident, initial encounter; F31.9 Bipolar disorder, unspecified; F90.9 Attention-deficit hyperactivity disorder, unspecified type; Y92.410 Unspecified street and highway as the place of occurrence of the external cause; Y93.89 Activity, other specified; Y99.9 Unspecified external cause status; Z88.1 Allergy status to other antibiotic agents; Z88.0 Allergy status to penicillin; Z79.1 Long term (current) use of non-steroidal anti-inflammatories (NSAID); Z79.899 Other long term (current) drug therapy
CPT/HCPCS: 72125; 72128; 72131; 96374; 99284; J1885; J2800

== ENCOUNTER → 2025-05-04 | Outpatient (CLI) | payer OTHER ==
[~2025-05-04] MED LIST changes: +METH-1164 PO; +NAPR1TAB86 PO; +TYLE650T38 PO
[2025-05-04 17:39] LABS: BASO # 0.1 10^3/uL (0.0-0.2); BASO % 0.6 % (0.0-1.0); EOS # 0.1 10^3/uL (0.0-0.5); EOS % 0.9 % (0.0-3.0); LYMPH # 2.4 10^3/uL (1.5-5.0); LYMPH % 30.4 % (24.0-44.0); MONO # 0.9 10^3/uL (0.0-0.8); MONO % 11.0 % (2.0-8.0); NEUTROPHILS # 4.5 10^3/uL (1.5-8.5); NEUTROPHILS % 56.8 % (36.0-66.0); PLATELET COUNT, AUTOMATED 359 10^3/uL (150-450)
[2025-05-04 18:02] LABS: ALT/SGPT 13 U/L (7.0-40); AST/SGOT 14 U/L (<34); CALCIUM LEVEL 9.0 MG/DL (8.5-10.1); CARBON DIOXIDE LEVEL 25 MMOL/L (20-31); CHLORIDE LEVEL 104 MMOL/L (98-107); CHOLESTEROL LEVEL 160 MG/DL (<200); CHOLESTEROL RISK RATIO 5.07 (<5); CREATININE FOR GFR 0.58 MG/DL (0.55-1.30); GLOMERULAR FILTRATION RATE > 90.0 (>60); LDL CHOLESTEROL 88.3 MG/DL (<100); NON-HDL-C 128.5 MG/DL; POTASSIUM SERUM 4.3 MMOL/L (3.5-5.1); SODIUM LEVEL 139 MMOL/L (136-145); TRIGLYCERIDES LEVEL 201 MG/DL (<150)
[2025-05-04 18:04] LABS: FREE T4 1.24 NG/DL (0.89-1.76)
== END ==
LOC: M PLALAB 14:45
PROVIDERS: ATTEND Physician Assistant Medical
DX: R00.0 Tachycardia, unspecified (principal); H47.10 Unspecified papilledema; Z13.220 Encounter for screening for lipoid disorders; F41.9 Anxiety disorder, unspecified

== ENCOUNTER → 2025-08-20 | Outpatient (RCR) | LOC: M EMPSKH 08-16 08:24 | PROVIDERS: ATTEND Family Medicine | DX: Z20.828 Contact with and (suspected) exposure to other viral communicable diseases (principal) ==